=== PATIENT | male | born 1950 | race Caucasian/White ===

== ENCOUNTER 2020-07-21 19:17 | Inpatient (IN) | payer MEDICARE, OTHER, SELFPAY ==
[2020-07-21] VITALS (17 sets, daily range): BP systolic 136–174; BP diastolic 88–100; PULSE 82–107; RESP 7–16; TEMP 36.3–36.4; O2SAT 96–100; BMI 19.4
--- NOTE | 2020-07-21 19:25 | DI.CT.S_ITS ---
PROCEDURE: CT CERVICAL SPINE WO CON INDICATIONS: syncope with neck pain TECHNIQUE: Noncontrast 3 mm thick sections acquired from the skull base to the T4 level. Sagittal and coronal reformats were then constructed. For radiation dose reduction, the following was used: automated exposure control, adjustment of mA and/or kV according to patient size. COMPARISON: None. FINDINGS: Image quality: Excellent. Bones: No fractures or dislocations. Visualized superior ribs are intact. Soft tissues: Prevertebral soft tissues are normal in thickness. No paravertebral hematomas. No apical pneumothoraces. REFERENCE TEXT DELETE FROM FINAL REPORT Craniocervical Injury Classification: Occipital condyle fractures: * Type I: axial loading with minimal displacement; stable. * Type II: skull base fx extending through condyle; stable. * Type III: alar ligament avulsion fx:; unstable. Garrochales fractures (Keo): * Type I: posterior arches; stable. * Type II: anterior arch; stable. * Type III: bilat posterior arch with bilateral/unilateral anterior arch (Keo burst); potentially unstable depending on transverse ligament integrity. * Type IV: lateral mass fx; stable. * Type V: transverse anterior arch avulsion fx; stable. Odontoid fractures: * Type I: alar ligament oblique avulsion fx through tip; stable. * Type II: dens-body junction; unstable. Risk factors for non-union: age >50 years, >6 mm displacement, or comminution at fracture site. * Type III: thru cancellous portion of dens body; can cause canal compromise. Hangman fractures: * Type I: hairline fx with <2 mm translation; stable. * Type II: angulation >11 degrees, > 2 mm translation; can be unstable. * Type IIa: severe angulation w/o translation (intact ALL); unstable. * Type III: bilateral facet dislocation; unstable. Atlantoaxial rotatory subluxation and fixation: * Type I: rotatory fixation with dens as pivot point, intact alar & transverse ligaments. * Type II: transverse ligament torn, center of rotation shifts to lateral mass, <5 mm anterior displacement of atlas; unstable. * Type III: transverse and alar ligaments torn, similar to type II but with >5 mm anterior displacement of atlas; unstable. * Type IV: deficient odontoid, with posterior displacement of atlas; unstable. Subaxial Injury Classification: SLIC Scoring System. Morphology: * No abnormality: 0 * Compression: 1 * Burst: 2 * Distraction: 3 (dislocation in the vertical axis, from hyperextension or hyperflexion). Hyperflexion-distraction criteria: facet overlap <50%, facet diastasis > 2mm, posterior disk spac widening with angulation >11 degrees. * Translation or rotation: 4. Rotation criteria: listhesis >3.5 mm but <50% of caudal vertebral body width. Translation criteria: listhesis >3.5 mm and usually >50% of caudal vertebral body width. Discoligamentous complex: coil placer from abnormal bony relationships on CT. * Intact: 0 * Indeterminate: 1 * Disrupted: 2 Neurologic status: * Intact: 0 * Root injury: 1 * Complete cord injury: 2 * Incomplete cord injury: 3 * Incomplete cord injury with compression: 4 Total SLIC score: 3 or less is non-surgical, 4 is indeterminate, 5 or more is surgical. IMPRESSION: No fracture. Dictated by: Davin Byrd M.D. on 07/21/2020 at 19:55 Approved by: Davin Byrd M.D. on 07/21/2020 at 19:57
--- NOTE | 2020-07-21 19:25 | ED_ITS ---
HPI - GI Bleed General Chief complaint: GI Bleed Stated complaint: GI Bleed / Syncope Time Seen by Provider: 07/21/20 19:20 Source: patient and EMS Mode of arrival: EMS Limitations: no limitations History of Present Illness HPI Narrative: 70-year-old male never smoker, daily drinker with history of hypertension hyperlipidemia presents by EMS for evaluation of multiple days of dark tarry stools and 2 episodes of syncope today upon standing. He denies any history of GI bleed, has had no episodes of hematemesis and takes no blood thinners. He is a poor historian but thinks maybe he had a problem with an ulcer and required an EGD many years ago at [facility]. He isn't sure if he hit his head or not, but does have some left sided neck pain and EMS put him in a C Collar as the result. He denies any chest pain or shortness of breath. He denies any abdominal pain. He denies any known history of liver problems or varices. He does state he has had withdrawal symptoms from alcohol before, but no seizures. MD complaint: melena Onset (ago): day(s) Relieving factors: none Exacerbating factors: none Context: alcohol abuse Associated symptoms: syncope Treatments Prior to Arrival: none Related Data Allergies Allergy/AdvReac Type Severity Reaction Status Date / Time No Known Drug Allergies Allergy Verified 07/21/20 19:25 Review of Systems Constitutional Constitutional: Denies chills, Denies fatigue, Denies fever(s), Denies frequent falls, Denies lethargy and Reports weakness Eyes Eyes: Denies change in vision, Denies eye discharge, Denies irritation and Denies loss of vision ENT Ears, Nose, Mouth, and Throat: Denies change in voice, Denies dizziness, Denies neck pain, Denies sore throat and Denies throat swelling Cardiovascular Cardiovascular: Denies chest pain, Reports syncope, Denies irregular heart rhythm, Denies lightheadedness, Denies palpitations, Denies dyspnea, Denies dyspnea on exertion and Denies orthopnea Respiratory Respiratory: Denies cough, Denies dyspnea, Denies dyspnea on exertion and Denies wheezing Gastrointestinal Gastrointestinal: Denies abdominal pain, Reports melena, Denies change in bowel habits, Denies diarrhea, Denies nausea and Denies vomiting Musculoskeletal Musculoskeletal: Denies neck pain and Denies numbness Integumentary/Breasts Skin/Breast: Denies pruritus, Denies erythema, Denies rash and Denies wounds Neurologic Neurologic: Denies behavioral changes, Denies confusion, Denies dizziness, Reports syncope, Denies frequent falls, Denies loss of vision, Denies numbness and Reports weakness Psychiatric Psychiatric: Denies anxiety, Denies behavioral changes, Denies confusion, Denies depression, Denies homicidal ideation and Denies suicidal ideation Endocrine Endocrine: Denies fatigue, Denies flushing and Denies palpitations Hematologic/Lymphatic Hematologic/Lymphatic: Denies easy bruising Allergic/Immunologic Allergic/Immunologic: Denies urticaria, Denies throat swelling and Denies wheezing Patient History Medical History Alcohol dependence (Acute) Diabetes type 2, 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 Smoking Status: Never smoker alcohol intake frequency: 3 or more drinks per day Alcohol type: beer Exam Narrative Exam Narrative: GENERAL: [70] year old patient appears stated age. Well- nourished, well-developed patient, in mild distress. HEAD: Atraumatic. Normocephalic. EYES: Pupils equal round and reactive. Extraocular motions intact. No scleral icterus. No injection or drainage. ENT: Nose without bleeding, purulent drainage. Throat without erythema, tonsillar hypertrophy or exudate. Airway patent. NECK: Trachea midline. Non tender CARDIOVASCULAR: Regular rate and rhythm without murmurs, gallops, or rubs. RESPIRATORY: Clear to auscultation. Breath sounds equal bilaterally. No wheezes, rales, or rhonchi. GASTROINTESTINAL: Abdomen soft, non-tender, nondistended. RECTAL: Dark stool, heme + EXTREMITIES: No edema or joint tenderness. BACK: Nontender without deformity or crepitance. No flank tenderness. NEURO: AOx3. SKIN: No rash or erythema of visible areas Initial Vital Signs Initial Vital Signs: Vital Signs Temperature 97.6 F 07/21/20 19:19 Pulse Rate 107 H 07/21/20 19:19 Respiratory Rate 16 07/21/20 19:19 Blood Pressure 159/98 H 07/21/20 19:19 Pulse Oximetry 100 07/21/20 19:19 Course Orders Ordered: ED Orders 07/21/20 19:25 CT cervical spine wo con Stat CT head/brain wo con Stat 07/21/20 19:30 Ammonia (NH3) Stat Complete Blood Count AUTO DIFF Stat Comprehensive Metabolic Panel Stat Ethanol (ETOH) Stat Lactate (Lactic Acid) Stat Partial Thromboplastin Time Stat Prothrombin Time INR Stat Type and Screen Stat 07/21/20 21:01 Hemoglobin and Hematocrit Stat Acetaminophen (Tylenol) 650 mg PO Q6HR PRN PRN Reason: Fever/Mild Pain (1-3) Dextrose (D50w) 25 gm IV PRN PRN PRN Reason: Hypoglycemia Folic Acid (Folic Acid) 1 mg PO DAILY [facility] Hydromorphone HCl (Dilaudid) 0.5 mg IV Q6HR PRN PRN Reason: Pain, Moderate (4-6) Pantoprazole Sodium 80 mg/ (Sodium Chloride) 100 mls @ 10 mls/hr IV CONT [facility] Last Infusion: 07/21/20 23:00 Dose: 8 mg/hr, 10 mls/hr Documented by: Infusion: 07/21/20 22:30 Dose: 0 mg/hr, 0 mls/hr Documented by: Admin: 07/21/20 20:02 Dose: 8 mg/hr, 10 mls/hr Documented by: RIMA Magnesium Sulfate 2 gm/ Folic Acid 1 mg/ Thiamine HCl 100 mg / Multivitamins 10 ml/ Sodium Chloride 1,015.2 mls @ 125 mls/hr IV NOW ONE Stop: 07/22/20 06:49 Last Admin: 07/22/20 00:53 Dose: 125 mls/hr Documented by: NIKO Insulin Aspart (Novolog Flexpen) 0 unit SUBCUT ACHS [facility]; Protocol Lorazepam (Ativan) 0.5 mg IV Q4HR PRN PRN Reason: Alcohol Withdrawal Multivitamins (Tab-A-Venancio) 1 tab PO DAILY [facility] Naloxone HCl (Narcan) 0.2 mg IV Q2MIN PRN PRN Reason: Opiate Reversal Ondansetron HCl (Zofran) 4 mg IV Q6HR PRN PRN Reason: Nausea And Vomiting Pantoprazole Sodium (Protonix) 40 mg IV BID [facility] Thiamine HCl (Vitamin B-1) 100 mg PO DAILY [facility] Stop: 07/25/20 09:01 Discontinued Medications Metoprolol Tartrate (Lopressor) 25 mg PO NOW ONE Stop: 07/21/20 22:50 Last Admin: 07/22/20 00:15 Dose: 25 mg Documented by: NIKO Octreotide Acetate (Sandostatin) 50 mcg IV NOW ONE Stop: 07/21/20 19:22 Last Admin: 07/21/20 19:30 Dose: 50 mcg Documented by: RIMA Pantoprazole Sodium (Protonix) 80 mg IV NOW ONE Stop: 07/21/20 19:22 Last Admin: 07/21/20 19:30 Dose: 80 mg Documented by: RIMA Thiamine HCl (Vitamin B-1) 100 mg IV NOW ONE Stop: 07/21/20 19:59 Last Admin: 07/21/20 20:03 Dose: 100 mg Documented by: RIMA Consultations Consultation #1: call to Dr. Velasquez to discuss his involvement with patient and suggestion of upper GI bleed, given his history of alcohol abuse. Vital Signs Vital signs: Vital Signs - 8 hr 07/21/20 19:19 07/21/20 19:25 07/21/20 19:30 Temperature 97.6 F Pulse Rate 107 H 98 H 103 H Respiratory Rate 16 Blood Pressure 159/98 H Pulse Oximetry 100 100 99 07/21/20 19:47 07/21/20 19:48 07/21/20 20:00 Temperature Pulse Rate 100 H 100 H 88 Respiratory Rate 14 8 L Blood Pressure 164/100 H Pulse Oximetry 99 99 97 07/21/20 20:01 07/21/20 20:15 07/21/20 20:30 Temperature Pulse Rate 90 91 H 85 Respiratory Rate 10 L 8 L 8 L Blood Pressure 164/98 H 144/94 H Pulse Oximetry 96 97 97 07/21/20 20:45 07/21/20 21:00 07/21/20 21:15 Temperature Pulse Rate 84 86 85 Respiratory Rate 9 L 10 L 8 L Blood Pressure 139/93 H Pulse Oximetry 98 98 98 07/21/20 21:30 07/21/20 21:45 07/21/20 22:00 Temperature Pulse Rate 85 84 96 H Respiratory Rate 7 L 7 L 15 Blood Pressure 136/88 Pulse Oximetry 98 99 99 07/21/20 22:13 Temperature Pulse Rate 84 Respiratory Rate 15 Blood Pressure 174/88 H Pulse Oximetry 99 MDM - GI Bleed Lab Data Result diagrams: 07/21/20 21:01 07/21/20 19:30 Labs: Lab Results 07/21/20 07/21/20 07/21/20 Range/Units 19:30 19:30 19:30 WBC 6.5 (4.5-11.0) X10^3/uL RBC 3.56 L (4.5-5.9) X10^6/uL Hgb 12.2 L (13.5-17.5) g/dL Hct 35.9 L (41-53) % MCV 100.7 H (80-100) fL MCH 34.3 H (26-34) PG MCHC 34.1 (30-36) % RDW 17.6 H (11.6-14.8) % Plt Count 213 (150-400) X10^3/uL Neut % (Auto) 73.6 (50-75) % Lymph % (Auto) 16.4 L (25-40) % [place] % (Auto) 7.7 (3-14) % Eos % (Auto) 1.3 L (2-4) % Baso % (Auto) 1.0 (0-2) % Neut # (Auto) 4800 (8562-7748) /uL Lymph # (Auto) 1100 (9004-9765) /uL [place] # (Auto) 500 (0-900) /uL Eos # (Auto) 100 (0-450) /uL Baso # (Auto) 100 (0-100) /uL PT 16.2 H (10.1-12.7) SECONDS INR 1.4 H (0.9-1.3) APTT 27 (26.4-36.2) SECONDS Sodium 134 L (137-145) mmol/L Potassium 3.6 (3.4-5.1) mmol/L Chloride 98 (98-107) mmol/L Carbon Dioxide 19 L (22-32) mmol/L BUN 14 (9-20) mg/dL Creatinine 0.53 L (0.66-1.25) mg/dL Estimated GFR > 60.0 (>60) mL/min BUN/Creatinine Ratio 26.4 H (6-22) Glucose 147 H (80-110) mg/dL Hemoglobin A1c (4.0-6.0) % Lactate (0.7-2.1) mmol/L Calcium 9.4 (8.4-10.2) mg/dL Total Bilirubin 2.0 H (0.2-1.3) mg/dL AST 121 H (17-59) IU/L ALT 76 H (<50) IU/L Alkaline Phosphatase 59 (38-126) U/L Ammonia (9-30) umol/L Total Protein 6.9 (6.3-8.2) g/dL Albumin 3.9 (3.5-5.0) g/dL Globulin 3.0 (1.7-4.1) g/dL Albumin/Globulin Ratio 1.3 (1.0-2.8) Ethyl Alcohol < 10 ( - 10) mg/dL COVID-19 PCR (Negative) Blood Type Antibody Screen 07/21/20 07/21/20 07/21/20 Range/Units 19:30 19:30 19:30 WBC (4.5-11.0) X10^3/uL RBC (4.5-5.9) X10^6/uL Hgb (13.5-17.5) g/dL Hct (41-53) % MCV (80-100) fL MCH (26-34) PG MCHC (30-36) % RDW (11.6-14.8) % Plt Count (150-400) X10^3/uL Neut % (Auto) (50-75) % Lymph % (Auto) (25-40) % [place] % (Auto) (3-14) % Eos % (Auto) (2-4) % Baso % (Auto) (0-2) % Neut # (Auto) (3071-4286) /uL Lymph # (Auto) (9958-5226) /uL [place] # (Auto) (0-900) /uL Eos # (Auto) (0-450) /uL Baso # (Auto) (0-100) /uL PT (10.1-12.7) SECONDS INR (0.9-1.3) APTT (26.4-36.2) SECONDS Sodium (137-145) mmol/L Potassium (3.4-5.1) mmol/L Chloride (98-107) mmol/L Carbon Dioxide (22-32) mmol/L BUN (9-20) mg/dL Creatinine (0.66-1.25) mg/dL Estimated GFR (>60) mL/min BUN/Creatinine Ratio (6-22) Glucose (80-110) mg/dL Hemoglobin A1c (4.0-6.0) % Lactate 2.1 (0.7-2.1) mmol/L Calcium (8.4-10.2) mg/dL Total Bilirubin (0.2-1.3) mg/dL AST (17-59) IU/L ALT (<50) IU/L Alkaline Phosphatase (38-126) U/L Ammonia < 9 L (9-30) umol/L Total Protein (6.3-8.2) g/dL Albumin (3.5-5.0) g/dL Globulin (1.7-4.1) g/dL Albumin/Globulin Ratio (1.0-2.8) Ethyl Alcohol ( - 10) mg/dL COVID-19 PCR (Negative) Blood Type A Positive Antibody Screen Negative 07/21/20 07/21/20 07/21/20 Range/Units 21:01 21:01 22:00 WBC (4.5-11.0) X10^3/uL RBC (4.5-5.9) X10^6/uL Hgb 11.6 L (13.5-17.5) g/dL Hct 33.6 L (41-53) % MCV (80-100) fL MCH (26-34) PG MCHC (30-36) % RDW (11.6-14.8) % Plt Count (150-400) X10^3/uL Neut % (Auto) (50-75) % Lymph % (Auto) (25-40) % [place] % (Auto) (3-14) % Eos % (Auto) (2-4) % Baso % (Auto) (0-2) % Neut # (Auto) (1279-5484) /uL Lymph # (Auto) (1033-7621) /uL [place] # (Auto) (0-900) /uL Eos # (Auto) (0-450) /uL Baso # (Auto) (0-100) /uL PT (10.1-12.7) SECONDS INR (0.9-1.3) APTT (26.4-36.2) SECONDS Sodium (137-145) mmol/L Potassium (3.4-5.1) mmol/L Chloride (98-107) mmol/L Carbon Dioxide (22-32) mmol/L BUN (9-20) mg/dL Creatinine (0.66-1.25) mg/dL Estimated GFR (>60) mL/min BUN/Creatinine Ratio (6-22) Glucose (80-110) mg/dL Hemoglobin A1c 5.7 (4.0-6.0) % Lactate (0.7-2.1) mmol/L Calcium (8.4-10.2) mg/dL Total Bilirubin (0.2-1.3) mg/dL AST (17-59) IU/L ALT (<50) IU/L Alkaline Phosphatase (38-126) U/L Ammonia (9-30) umol/L Total Protein (6.3-8.2) g/dL Albumin (3.5-5.0) g/dL Globulin (1.7-4.1) g/dL Albumin/Globulin Ratio (1.0-2.8) Ethyl Alcohol ( - 10) mg/dL COVID-19 PCR Negativen (Negative) Blood Type Antibody Screen Point of Care Testing Stool Occult Blood Positive Discharge Plan Departure Patient Disposition: Admitted As Inpatient Clinical Impression: Acute upper gastrointestinal bleeding Syncope Qualifiers: Encounter type: initial encounter Discharge Date/Time: 07/21/20 22:20 Admit Date/Time: 07/21/20 22:28 Admit Provider: Sridevi Dsouza
--- NOTE | 2020-07-21 19:25 | DI.CT.S_ITS ---
PROCEDURE: CT HEAD/BRAIN WO CON INDICATIONS: syncope with head/neck injury TECHNIQUE: Noncontrast 4.5 mm thick angled axial sections acquired from the foramen magnum to the vertex, with coronal and sagittal reformats. For radiation dose reduction, the following was used: automated exposure control, adjustment of mA and/or kV according to patient size. COMPARISON: None. FINDINGS: Image quality: Excellent. CSF spaces: Basal cisterns are patent. No extra-axial fluid collections. The ventricles are symmetric in size and shape. Brain: No intracranial bleeds or masses. There is cerebral volume loss for age, with resultant ventricular and sulcal prominence. There are periventricular and deep white matter chronic small vessel ischemic changes. There is intracranial internal carotid artery atherosclerosis. Skull and face: Calvarium and visualized facial bones appear intact, without suspicious lesions. Sinuses: Visualized sinuses and mastoids are clear. IMPRESSION: No acute intracranial abnormality. Dictated by: Davin Byrd M.D. on 07/21/2020 at 19:54 Approved by: Davin Byrd M.D. on 07/21/2020 at 19:55
[2020-07-21] MEDS: PANTOPRAZOLE 40 MG VIAL 80 MG IV (19:30)
[2020-07-21] MEDS: OCTREOTIDE 100 MCG/ML VIAL 50 MCG IV (19:30)
[2020-07-21 19:39] LABS: Add Manual Diff / Slide Review NO; Basophils Absolute Auto 100 /uL (0-100); Eosinophils Absolute Auto 100 /uL (0-450); Eosinophils Percent Auto 1.3 % (2-4); Hematocrit 35.9 % (41-53); Hemoglobin 12.2 g/dL (13.5-17.5); Lymphocytes Absolute Auto 1100 /uL (1100-4500); Lymphocytes Percent Auto 16.4 % (25-40); Mean Corpuscular HGB Conc 34.1 % (30-36); Mean Corpuscular Hemoglobin 34.3 PG (26-34); Mean Corpuscular Volume 100.7 fL (80-100); Monocytes Absolute Auto 500 /uL (0-900); Monocytes Percent Auto 7.7 % (3-14); Neutrophils Absolute Auto 4800 /uL (1500-7000); Neutrophils Percent Auto 73.6 % (50-75); Platelet Count 213 X10^3/uL (150-400); Red Blood Cell Count 3.56 X10^6/uL (4.5-5.9); Red Cell Distribution Width 17.6 % (11.6-14.8); White Blood Cell Count 6.5 X10^3/uL (4.5-11.0)
[2020-07-21 19:45] LABS: INR 1.4 (0.9-1.3); Prothrombin Time 16.2 SECONDS (10.1-12.7)
[2020-07-21 19:48] LABS: PTT Partial Thromboplastin Tim 27 SECONDS (26.4-36.2)
[2020-07-21 19:49] LABS: Lactate (Lactic Acid) 2.1 mmol/L (0.7-2.1)
[2020-07-21 19:50] LABS: Alanine Aminotransferase 76 IU/L (<50); Albumin 3.9 g/dL (3.5-5.0); Albumin Globulin Ratio 1.3 (1.0-2.8); Alkaline Phosphatase 59 U/L (38-126); Aspartate Aminotransferase 121 IU/L (17-59); BUN Creatinine Ratio 26.4 (6-22); Blood Urea Nitrogen 14 mg/dL (9-20); Calcium 9.4 mg/dL (8.4-10.2); Carbon Dioxide 19 mmol/L (22-32); Chloride 98 mmol/L (98-107); Estimated Glomerular Filt Rate > 60.0 mL/min (>60); Ethanol (ETOH) < 10 mg/dL; Glucose 147 mg/dL (80-110); HEMOLYSIS < 15 (0-50); Potassium 3.6 mmol/L (3.4-5.1); Sodium 134 mmol/L (137-145); Total Protein 6.9 g/dL (6.3-8.2)
[2020-07-21] MEDS: PANTOPRAZOLE 80 MG in SODIUM CHLORIDE 0.9% 100 ML 10 ML IV (20:02)
[2020-07-21] MEDS: THIAMINE 200 MG/2 ML VIAL 100 MG IV (20:03)
[2020-07-21 20:09] LABS: Ammonia (NH3) < 9 umol/L (9-30)
[2020-07-21 21:14] LABS: Hematocrit 33.6 % (41-53); Hemoglobin 11.6 g/dL (13.5-17.5)
--- NOTE | 2020-07-21 22:48 | PC.NURSE ---
2230 pt admitted to 228 per stretcher from ED Awake and oriented, able to make needs known. Instructed to call for help if needing to get out of bed, verbalizes understanding. protonix drip in progress to R hand IV. Denies pain at this time.
--- NOTE | 2020-07-21 22:52 | P.HP_ITS ---
History of Present Illness History of Present Illness Date Patient Seen: 07/21/20 Time Patient Seen: 22:30 Chief complaint: GI Bleed / Syncope Narrative: Patric Dejesus is a 70 y.o.male with self reported diabetes type 2 and hypertension who states he fell and has been feeling weak. Does not remember details of the fall, only that he has fallen twice earlier today and he has been having dark tarry stools. Stated he underwent EGD at [facility] in 2008. He is retired [employer] after 22 years of service, and goes to the [facility] in [facility]. States he has had a number of colonoscopies at [facility] with no abnormal results that he recalls. He stated EMS told him he was sweating profusely, on arrival to the ED he complained of neck pain and was placed in a C-collar. He denies shortness of breath, palpitations or chest pain, has had some nausea but no vomiting, denies dysurea, or constipation, nor has easy bleeding or bruising and denies taking blood thinners. He does endorse drinking 3-4 glasses of wine daily and has leg tremors when he has had to withdraw. He has chronic bilateral lower extremity, specifically feet numbing. Patient reportedly drinks 3-4 glasses of wine daily, but states his last drink was a day and a half ago. States when he has had to stop drinking, he has lower extremity tremors. In the emergency department they did a cervical and head x-ray which did not reveal any abnormalities. He was given Protonix IV 80 mg and thiamine. Patient is temperature was 97.6?, blood pressure 174/88, heart rate 84, respiratory rate 15, 99% oxygen saturation, he weighs 61.5 kg and has a BMI of 19.5. WBC 6.5, RBC 3.56, hemoglobin 11.6, hematocrit 33.6, platelet count 213, INR is 1.4, PT 16.2 seconds, sodium 134, potassium 3.6, chloride 98, bicarb 19, BUN 14, creatinine 0.53, GFR greater than 60, glucose 147, A1c is pending, total bili stiles is 2.0, AST 121, ALT 76, alk-phos 59, ammonia normal at less than 9, ethyl alcohol normal at less than 10, COVID-19 negative. Of note, patient states he does not recall medical conditions his parents or other primary family members have had. Patient History Medical History Alcohol dependence (Acute) Diabetes type 2, no ocular involvement (Chronic) Hypertension (Acute) Surgical History History of repair of hiatal hernia (Acute) Family & Social History Family History Mother Unknown family medical history Father Unknown family medical history Safety & Behavioral: Feels Safe in Current Yes Environment Been Physically Hurt or No Threatened By a Person Tobacco & Substance use: Smoking Status Never smoker alcohol intake frequency 3 or more drinks per day Meds Home Medications and Allergies Allergies Allergy/AdvReac Type Severity Reaction Status Date / Time No Known Drug Allergies Allergy Verified 07/21/20 19:25 Review of Systems Review of Systems ROS: Yes All systems reviewed with the patient and are negative except as otherwise documented Exam Vital Signs (past 8 hours): - 07/21/20 19:19 07/21/20 19:25 07/21/20 19:30 Temperature 97.6 F Pulse Rate 107 H 98 H 103 H Respiratory Rate 16 Blood Pressure 159/98 H Pulse Oximetry 100 100 99 07/21/20 19:47 07/21/20 19:48 07/21/20 20:00 Temperature Pulse Rate 100 H 100 H 88 Respiratory Rate 14 8 L Blood Pressure 164/100 H Pulse Oximetry 99 99 97 07/21/20 20:01 07/21/20 20:15 07/21/20 20:30 Temperature Pulse Rate 90 91 H 85 Respiratory Rate 10 L 8 L 8 L Blood Pressure 164/98 H 144/94 H Pulse Oximetry 96 97 97 07/21/20 20:45 07/21/20 21:00 07/21/20 21:15 Temperature Pulse Rate 84 86 85 Respiratory Rate 9 L 10 L 8 L Blood Pressure 139/93 H Pulse Oximetry 98 98 98 07/21/20 21:30 07/21/20 21:45 07/21/20 22:00 Temperature Pulse Rate 85 84 96 H Respiratory Rate 7 L 7 L 15 Blood Pressure 136/88 Pulse Oximetry 98 99 99 07/21/20 22:13 Temperature Pulse Rate 84 Respiratory Rate 15 Blood Pressure 174/88 H Pulse Oximetry 99 Oxygen Delivery Method Room Air Narrative Exam Narrative: PE: Gen: Alert, oriented, chronically ill appearing 70 y.o. male, appears dry HEENT: normocephalic, atraumatic, conjunctiva clear, sclera non-icteric, oral mucosa pink and moist Neck: supple, full ROM, no JVD, trachea is midline Resp: Lungs CTA, non-labored breathing CV: RRR, no murmur or rubs Abd: soft, non-tender, normoactive BTs Skin: no lesions or rashes, dry and intact Neuro: Alert and oriented X 4 w/no focal deficits. Speech clear and coherent. Extremities: moves all 4 extremities, is ambulatory, negative Ranjit?s sign Psyche: normal mood and affect. Objective Labs Result Diagrams: 07/21/20 21:01 07/21/20 19:30 Labs: Laboratory Results - last 24 hr 07/21/20 07/21/20 07/21/20 19:30 19:30 19:30 WBC 6.5 RBC 3.56 L Hgb 12.2 L Hct 35.9 L MCV 100.7 H MCH 34.3 H MCHC 34.1 RDW 17.6 H Plt Count 213 Neut % (Auto) 73.6 Lymph % (Auto) 16.4 L [place] % (Auto) 7.7 Eos % (Auto) 1.3 L Baso % (Auto) 1.0 Neut # (Auto) 4800 Lymph # (Auto) 1100 [place] # (Auto) 500 Eos # (Auto) 100 Baso # (Auto) 100 PT 16.2 H INR 1.4 H APTT 27 Sodium 134 L Potassium 3.6 Chloride 98 Carbon Dioxide 19 L BUN 14 Creatinine 0.53 L Estimated GFR > 60.0 BUN/Creatinine Ratio 26.4 H Glucose 147 H Lactate Calcium 9.4 Total Bilirubin 2.0 H AST 121 H ALT 76 H Alkaline Phosphatase 59 Ammonia Total Protein 6.9 Albumin 3.9 Globulin 3.0 Albumin/Globulin Ratio 1.3 Ethyl Alcohol < 10 Blood Type Antibody Screen 07/21/20 07/21/20 07/21/20 19:30 19:30 19:30 WBC RBC Hgb Hct MCV MCH MCHC RDW Plt Count Neut % (Auto) Lymph % (Auto) [place] % (Auto) Eos % (Auto) Baso % (Auto) Neut # (Auto) Lymph # (Auto) [place] # (Auto) Eos # (Auto) Baso # (Auto) PT INR APTT Sodium Potassium Chloride Carbon Dioxide BUN Creatinine Estimated GFR BUN/Creatinine Ratio Glucose Lactate 2.1 Calcium Total Bilirubin AST ALT Alkaline Phosphatase Ammonia < 9 L Total Protein Albumin Globulin Albumin/Globulin Ratio Ethyl Alcohol Blood Type A Positive Antibody Screen Negative 07/21/20 21:01 WBC RBC Hgb 11.6 L Hct 33.6 L MCV MCH MCHC RDW Plt Count Neut % (Auto) Lymph % (Auto) [place] % (Auto) Eos % (Auto) Baso % (Auto) Neut # (Auto) Lymph # (Auto) [place] # (Auto) Eos # (Auto) Baso # (Auto) PT INR APTT Sodium Potassium Chloride Carbon Dioxide BUN Creatinine Estimated GFR BUN/Creatinine Ratio Glucose Lactate Calcium Total Bilirubin AST ALT Alkaline Phosphatase Ammonia Total Protein Albumin Globulin Albumin/Globulin Ratio Ethyl Alcohol Blood Type Antibody Screen Assessment & Plan Assessment & Plan narrative: Patric Dejesus will be admitted for further workup and assessment of a suspected upper GI bleed. Suspected upper GI bleed, acute, present on admission -NPO -NS at 100 ml/hour -IV protonix 40 mg bid -Dr. Velasquez to see in the am -cbc in the am Elevated liver enzymes, unknown if present on admission -Repeat in the am, if continued elevated, order a Hepatitis panel Alcohol dependence with potential for alcohol withdrawal -[facility] protocol -IV ativan 0.5 mg q 4 hours as needed for withdrawal Diabetes type 2 with an A1c of 5.7 -Insulin low dose correctional scale q 6 hours -POC glucose q 6 hours Essential hypertension, chronic, present on admission -He has been administered metoprolol tartrate 25 mg bid, first dose given tonight -Records request from the [facility] and [facility] tomorrow Plan: Consults: Dr. Velasquez, General Surgery, consult and involvement is appreciated. Patient is admitted under inpatient status with expected length of stay greater than 2 midnights due to severity of presenting symptoms, risk of adverse event, and complexity of treatment plan. FEN: IV NS at 100 ml/hour, NPO, CMP and magnesium in the am . VTE prophylaxis: Bilateral SCDs Dispo: Probable discharge to home Code Status: Full code as discussed with patient COVID-19 COVID-19 status: Negative Result date/Date tested (Pos, Neg/Pending): 07/21/20
[2020-07-21 23:37] LABS: Hemoglobin A1C% w Est Avg Glu 5.7 % (4.0-6.0)
[2020-07-22] VITALS (14 sets, daily range): BP systolic 93–150; BP diastolic 64–90; PULSE 64–150; RESP 7–20; TEMP 36.1–37.1; O2SAT 92–99; BMI 19.4
--- NOTE | 2020-07-22 | PATH_ITS ---
[facility] Accession Number: [id number] . 01 Material submitted: . gastrointestinal site - GASTRIC BIOPSY . 01 Clinical history: . GI BLEED/SYNCOPE . 02 Diagnosis: Stomach, Biopsy: Mild chronic gastritis. Negative for Helicobacter by immunohistochemistry. Negative for intestinal metaplasia. Negative for dysplasia and malignancy. [facility] 07/25/2020 1503 Local . 02 Electronically signed: . Miri Reinoso MD, Pathologist NPI- [id number] . 01 Gross description: . GASTRIC BIOPSY: Received in formalin are 2 fragment(s) of landin, soft tissue measuring 0.5 x 0.2 x 0.2 cm to 0.2 x 0.1 x 0.1 cm submitted entirely in 1 cassette(s) /[facility] 07/23/2020 0704 Local . 02 Microscopic: . An immunohistochemical stain was performed to evaluate for Helicobacter organisms and is negative. The control stain showed appropriate reactivity. . * This test was developed and its performance characteristics determined by [facility]. It has not been cleared or approved by the U.S. Food and Drug Administration. The FDA has determined that such clearance or approval is not necessary. This test is used for clinical purposes. It should not be regarded as investigational or for research. . 02 Pathologist provided ICD-10: K92.2 . 02 CPT . 672767, [id number] Performed at: 01 [facility] [address], [place], [place] [id number] MD Constantin Fernandes MD Phone: [phone] Performed at: 02 [facility] [address] [place], [place] [id number] MD Miri Reinoso MD Phone: [phone]
[2020-07-22] MEDS: METOPROLOL IR 25 MG TABLET PO (00:15)
[2020-07-22] MEDS: MAGNESIUM SULFATE 2 GM, FOLIC ACID 1 MG, THIAMINE 100 MG, MULTIVITAMIN 10 ML in SODIUM ... IV (00:53)
[2020-07-22 05:04] LABS: Add Manual Diff / Slide Review NO; Basophils Absolute Auto 100 /uL (0-100); Basophils Percent Auto 1.1 % (0-2); Eosinophils Absolute Auto 200 /uL (0-450); Eosinophils Percent Auto 2.7 % (2-4); Hematocrit 31.7 % (41-53); Hemoglobin 10.9 g/dL (13.5-17.5); Lymphocytes Absolute Auto 1700 /uL (1100-4500); Lymphocytes Percent Auto 26.2 % (25-40); Mean Corpuscular HGB Conc 34.4 % (30-36); Mean Corpuscular Hemoglobin 34.9 PG (26-34); Mean Corpuscular Volume 101.5 fL (80-100); Monocytes Absolute Auto 600 /uL (0-900); Monocytes Percent Auto 8.6 % (3-14); Neutrophils Absolute Auto 4000 /uL (1500-7000); Neutrophils Percent Auto 61.4 % (50-75); Platelet Count 175 X10^3/uL (150-400); Red Blood Cell Count 3.12 X10^6/uL (4.5-5.9); Red Cell Distribution Width 17.5 % (11.6-14.8); White Blood Cell Count 6.5 X10^3/uL (4.5-11.0)
[2020-07-22 05:12] LABS: Alanine Aminotransferase 69 IU/L (<50); Albumin 3.4 g/dL (3.5-5.0); Albumin Globulin Ratio 1.2 (1.0-2.8); Alkaline Phosphatase 49 U/L (38-126); Aspartate Aminotransferase 99 IU/L (17-59); BUN Creatinine Ratio 27.5 (6-22); Bilirubin Total 2.1 mg/dL (0.2-1.3); Blood Urea Nitrogen 14 mg/dL (9-20); Calcium 8.8 mg/dL (8.4-10.2); Carbon Dioxide 24 mmol/L (22-32); Chloride 100 mmol/L (98-107); Estimated Glomerular Filt Rate > 60.0 mL/min (>60); Globulin 2.9 g/dL (1.7-4.1); Glucose 114 mg/dL (80-110); HEMOLYSIS < 15 (0-50); Potassium 3.4 mmol/L (3.4-5.1); Sodium 136 mmol/L (137-145); Total Protein 6.3 g/dL (6.3-8.2)
--- NOTE | 2020-07-22 06:30 | PC.NURSE ---
NOC Note: Pt denies pain, BT x4, no stools this shift. Pt has not been out of bed this shift, he requested a urinal but has not used it and became irritated with staff when he was encouraged to try. IV fluids running as ordered. CIWA score of 0. Pt has been NPO as ordered. Pt moving independently in the bed. Pt requesting that [facility].
[2020-07-22] MEDS: PANTOPRAZOLE 40 MG VIAL IV ×2 (08:10→21:27)
--- NOTE | 2020-07-22 08:40 | CM.DANOTE ---
DCP: Case received, EMR reviewed and met with patient. Introduced self and role. Was able to obtain some information from patient regarding his baseline activity level and living situation. DCP assessment completed with information currently available. Patient is a 70 year old male who admitted yesterday evening to the care of the hospitalist/surgical team. PCP: Dr. Avalos at [facility] in [facility]. Payer: confirmed: Located [facility]. Patient came to the hospital via ambulance secondary to weakness. Patient holds diagnosis of GI bleed. He is to be having an EGD today. It is also noted that patient is a daily drinker, approximately 3 glasses of wine daily. Met with patient in his room. He was sitting up in bed, alert and oriented. Confirmed that he resides alone in [place]. He is retired [employer] after 22 years, and is retired. He uses no DME. He has had falls before. Patient indicated that he holds on to the flores to ambulate. He does not drive, and relies on the bus service or taxi. He does have a fellow retiree that takes him to [facility] for his appointments. He has no family. P: DCP to follow closely. Will discuss at team rounds. Patient is to have his procedure today. He may benefit with P.T. consult. Magaly Pierson RN/[employer]
--- NOTE | 2020-07-22 10:51 | PM.CN ---
History of Present Illness Consult details Date Patient Seen: 07/22/20 Time Patient Seen: 10:51 Chief complaint: GI Bleed / Syncope Narrative: This is a 70-year-old male who is seen in consultation for GI bleed. He has had 3 days of dark appearing stools and has felt lightheaded and weak. At the time of admission he is hemodynamically stable hematocrit 36. Has no hematemesis or bright red blood per rectum. He has a history of peptic ulcer disease he cannot recall when. He rarely takes NSAIDs or aspirin, he is not anticoagulated. [facility]. Meds Home Medications and Allergies Allergies Allergy/AdvReac Type Severity Reaction Status Date / Time No Known Drug Allergies Allergy Verified 07/21/20 19:25 Review of Systems Review of Systems Narrative: A 10 point review of systems is negative except as noted in the HPI Exam Vital Signs (past 8 hours): - 07/22/20 04:57 07/22/20 08:00 07/22/20 10:17 Temperature 98.1 F 98.7 F 97.0 F L Pulse Rate 76 150 H 76 Respiratory Rate 18 10 L 16 Blood Pressure 127/82 150/76 H 139/90 Pulse Oximetry 97 97 99 Oxygen Delivery Method Room Air Oxygen Flow Rate 0 Narrative Exam Narrative: General-no acute distress, thin elderly man HEENT-moist mucous membranes, no scleral icterus Neck-supple, no lymphadenopathy Chest- non labored respirations, clear to auscultation bilaterally Cardiac-regular rate no peripheral edema Abdomen-soft, nontender, non distended Extremities-warm, well perfused Neurological-alert and oriented, no focal deficits Objective Labs Result Diagrams: 07/22/20 04:47 07/22/20 04:47 Labs: Laboratory Results - last 24 hr 07/21/20 07/21/20 07/21/20 19:30 19:30 19:30 WBC 6.5 RBC 3.56 L Hgb 12.2 L Hct 35.9 L MCV 100.7 H MCH 34.3 H MCHC 34.1 RDW 17.6 H Plt Count 213 Neut % (Auto) 73.6 Lymph % (Auto) 16.4 L [place] % (Auto) 7.7 Eos % (Auto) 1.3 L Baso % (Auto) 1.0 Neut # (Auto) 4800 Lymph # (Auto) 1100 [place] # (Auto) 500 Eos # (Auto) 100 Baso # (Auto) 100 PT 16.2 H INR 1.4 H APTT 27 Sodium 134 L Potassium 3.6 Chloride 98 Carbon Dioxide 19 L BUN 14 Creatinine 0.53 L Estimated GFR > 60.0 BUN/Creatinine Ratio 26.4 H Glucose 147 H Hemoglobin A1c Lactate Calcium 9.4 Magnesium Total Bilirubin 2.0 H AST 121 H ALT 76 H Alkaline Phosphatase 59 Ammonia Total Protein 6.9 Albumin 3.9 Globulin 3.0 Albumin/Globulin Ratio 1.3 Nasal Screen MRSA (PCR) Ethyl Alcohol < 10 COVID-19 PCR Blood Type Antibody Screen 07/21/20 07/21/20 07/21/20 19:30 19:30 19:30 WBC RBC Hgb Hct MCV MCH MCHC RDW Plt Count Neut % (Auto) Lymph % (Auto) [place] % (Auto) Eos % (Auto) Baso % (Auto) Neut # (Auto) Lymph # (Auto) [place] # (Auto) Eos # (Auto) Baso # (Auto) PT INR APTT Sodium Potassium Chloride Carbon Dioxide BUN Creatinine Estimated GFR BUN/Creatinine Ratio Glucose Hemoglobin A1c Lactate 2.1 Calcium Magnesium Total Bilirubin AST ALT Alkaline Phosphatase Ammonia < 9 L Total Protein Albumin Globulin Albumin/Globulin Ratio Nasal Screen MRSA (PCR) Ethyl Alcohol COVID-19 PCR Blood Type A Positive Antibody Screen Negative 07/21/20 07/21/20 07/21/20 21:01 21:01 22:00 WBC RBC Hgb 11.6 L Hct 33.6 L MCV MCH MCHC RDW Plt Count Neut % (Auto) Lymph % (Auto) [place] % (Auto) Eos % (Auto) Baso % (Auto) Neut # (Auto) Lymph # (Auto) [place] # (Auto) Eos # (Auto) Baso # (Auto) PT INR APTT Sodium Potassium Chloride Carbon Dioxide BUN Creatinine Estimated GFR BUN/Creatinine Ratio Glucose Hemoglobin A1c 5.7 Lactate Calcium Magnesium Total Bilirubin AST ALT Alkaline Phosphatase Ammonia Total Protein Albumin Globulin Albumin/Globulin Ratio Nasal Screen MRSA (PCR) Ethyl Alcohol COVID-19 PCR Negativen Blood Type Antibody Screen 07/21/20 07/22/20 07/22/20 22:50 04:47 04:47 WBC 6.5 RBC 3.12 L Hgb 10.9 L Hct 31.7 L MCV 101.5 H MCH 34.9 H MCHC 34.4 RDW 17.5 H Plt Count 175 Neut % (Auto) 61.4 Lymph % (Auto) 26.2 [place] % (Auto) 8.6 Eos % (Auto) 2.7 Baso % (Auto) 1.1 Neut # (Auto) 4000 Lymph # (Auto) 1700 [place] # (Auto) 600 Eos # (Auto) 200 Baso # (Auto) 100 PT INR APTT Sodium 136 L Potassium 3.4 Chloride 100 Carbon Dioxide 24 BUN 14 Creatinine 0.51 L Estimated GFR > 60.0 BUN/Creatinine Ratio 27.5 H Glucose 114 H Hemoglobin A1c Lactate Calcium 8.8 Magnesium 2.0 Total Bilirubin 2.1 H AST 99 H ALT 69 H Alkaline Phosphatase 49 Ammonia Total Protein 6.3 Albumin 3.4 L Globulin 2.9 Albumin/Globulin Ratio 1.2 Nasal Screen MRSA (PCR) Negative for mrsa Ethyl Alcohol COVID-19 PCR Blood Type Antibody Screen Assessment & Plan Assessment & Plan narrative: 70 year old man hemodynamically stable with a GI bleed presumably upper. Recommended that we proceed with a esophagoduodenoscopy for diagnostic/therapeutic purpose. I described the technical nature of the procedure to him and the associated procedural risks including missed diagnosis, intestinal perforation, bleeding infection need for further procedure. His questions have been answered he is in agreement with this plan.
[2020-07-22] MEDS: LIDOCAINE 4% SOLN 50 ML 20 ML TOP (10:58)
[2020-07-22] MEDS: fentaNYL 250 MCG/5 ML INJ IV (11:00)
[2020-07-22] MEDS: MIDAZOLAM 5 MG/5 ML VIAL IV (11:00)
--- NOTE | 2020-07-22 11:09 | PM.OP.ENDO ---
Operative Date/Time/Diagnoses Date of procedure: 07/22/20 Time of procedure: 11:09 Pre-op diagnosis: GI bleed Post-op diagnosis: other (Gastritis) Procedure & Clinicians Study performed: Esophagoduodenoscopy Same procedure as scheduled: Yes Indications: 70 year old man admitted to the hospital with melanotic stool hemodynamically stable here for EGD Surgeon: Nikolas Velasquez Procedure Notes SCOAP/Timeout: Performed Procedure in detail: Patient placed in left lateral decubitus position. Time out was performed. Procedural sedation was administered with Versed and Fentanyl. A bite block was placed. the scope was inserted into the mouth and advanced through the esophagus and into the stomach. The stomach was not notable for diffuse gastritis no active hemorrhage or ulceration. Two random gastric biopsies were taken with the forceps, hemostasis was observed The pylorus was intubated and the duodenum was normal to the 2nd portion. The scope was retroflexed within the stomach and there was a small hiatal hernia. The scope was withdrawn into the esophagus the Z line was seen at 40 cm from the incisions. There was no Garcia's esophagitis or masses or strictures. Stomach was desufflated and scope removed. Patient tolerated procedure well. Sedation minutes: 15 Findings: gastritis and hiatal hernia Specimen(s): other (Gastric biopsy) Complications: none Impression: Gastritis Post-procedure Recommendations: Continue medication(s) (Protonix) Disposition: ICU
--- NOTE | 2020-07-22 11:30 | SUR.PHASEI ---
Report called to [facility]
--- NOTE | 2020-07-22 11:43 | SUR.PHASEI ---
patient able to transfer to ICU
--- NOTE | 2020-07-22 11:52 | SUR.PHASEI ---
patient transferred to the ICU by Mickie Nickerson with pulse ox.
--- NOTE | 2020-07-22 12:08 | PC.NURSE ---
pt initially npo for pending egd which was completed and he returned to room 228 @ 1200- sleepy but appropriate- weaned off o2 with room air spo2 99% - pt still has not voided and passing flatus- taking diet well denies pain
--- NOTE | 2020-07-22 16:03 | PM.PN.1 ---
Subjective Subjective Date Patient Seen: 07/22/20 Time Patient Seen: 09:00 Interval history: Patric Dejesus is a 70 year old male who was admitted for GI bleeding after he had dark tarry stools. He underwent EGD today which revealed a hiatal hernia and gastritis. He tolerated dinner. Repeat Hg improved from 10.9 to 11.6 after endoscopy. He tolerated initial meal this evening. He remains on IV protonix. Exam Vital Signs (past 8 hours): - 07/22/20 10:17 07/22/20 11:12 07/22/20 11:17 Temperature 97.0 F L 97.0 F L Pulse Rate 76 68 66 Respiratory Rate 16 12 7 L Blood Pressure 139/90 112/80 109/72 Pulse Oximetry 99 92 98 07/22/20 11:22 07/22/20 11:27 07/22/20 11:32 Temperature Pulse Rate 65 65 66 Respiratory Rate 7 L 12 16 Blood Pressure 101/71 107/71 109/72 Pulse Oximetry 97 97 98 07/22/20 11:42 07/22/20 12:00 07/22/20 15:00 Temperature 97.5 F L 98.7 F Pulse Rate 64 79 74 Respiratory Rate 8 L 20 18 Blood Pressure 93/64 125/69 106/69 Pulse Oximetry 93 99 99 Oxygen Delivery Method Room Air Oxygen Flow Rate 0 Narrative Exam Narrative: PE: Gen: Alert, oriented, chronically ill appearing 70 y.o. male, appears dry HEENT: normocephalic, atraumatic, conjunctiva clear, sclera non-icteric, oral mucosa pink and moist Neck: supple, full ROM, no JVD, trachea is midline Resp: Lungs CTA, non-labored breathing CV: RRR, no murmur or rubs Abd: soft, non-tender, normoactive BTs Skin: no lesions or rashes, dry and intact Neuro: Alert and oriented X 4 w/no focal deficits. Speech clear and coherent. Extremities: moves all 4 extremities, is ambulatory, negative Ranjit?s sign Psyche: normal mood and affect. Objective Labs Result Diagrams: 07/22/20 20:11 07/22/20 04:47 Labs: Laboratory Results - last 24 hr 07/21/20 07/21/20 07/21/20 19:30 19:30 19:30 WBC 6.5 RBC 3.56 L Hgb 12.2 L Hct 35.9 L MCV 100.7 H MCH 34.3 H MCHC 34.1 RDW 17.6 H Plt Count 213 Neut % (Auto) 73.6 Lymph % (Auto) 16.4 L [place] % (Auto) 7.7 Eos % (Auto) 1.3 L Baso % (Auto) 1.0 Neut # (Auto) 4800 Lymph # (Auto) 1100 [place] # (Auto) 500 Eos # (Auto) 100 Baso # (Auto) 100 PT 16.2 H INR 1.4 H APTT 27 Sodium 134 L Potassium 3.6 Chloride 98 Carbon Dioxide 19 L BUN 14 Creatinine 0.53 L Estimated GFR > 60.0 BUN/Creatinine Ratio 26.4 H Glucose 147 H Hemoglobin A1c Lactate Calcium 9.4 Magnesium Total Bilirubin 2.0 H AST 121 H ALT 76 H Alkaline Phosphatase 59 Ammonia Total Protein 6.9 Albumin 3.9 Globulin 3.0 Albumin/Globulin Ratio 1.3 Nasal Screen MRSA (PCR) Ethyl Alcohol < 10 COVID-19 PCR Blood Type Antibody Screen 07/21/20 07/21/20 07/21/20 19:30 19:30 19:30 WBC RBC Hgb Hct MCV MCH MCHC RDW Plt Count Neut % (Auto) Lymph % (Auto) [place] % (Auto) Eos % (Auto) Baso % (Auto) Neut # (Auto) Lymph # (Auto) [place] # (Auto) Eos # (Auto) Baso # (Auto) PT INR APTT Sodium Potassium Chloride Carbon Dioxide BUN Creatinine Estimated GFR BUN/Creatinine Ratio Glucose Hemoglobin A1c Lactate 2.1 Calcium Magnesium Total Bilirubin AST ALT Alkaline Phosphatase Ammonia < 9 L Total Protein Albumin Globulin Albumin/Globulin Ratio Nasal Screen MRSA (PCR) Ethyl Alcohol COVID-19 PCR Blood Type A Positive Antibody Screen Negative 07/21/20 07/21/20 07/21/20 21:01 21:01 22:00 WBC RBC Hgb 11.6 L Hct 33.6 L MCV MCH MCHC RDW Plt Count Neut % (Auto) Lymph % (Auto) [place] % (Auto) Eos % (Auto) Baso % (Auto) Neut # (Auto) Lymph # (Auto) [place] # (Auto) Eos # (Auto) Baso # (Auto) PT INR APTT Sodium Potassium Chloride Carbon Dioxide BUN Creatinine Estimated GFR BUN/Creatinine Ratio Glucose Hemoglobin A1c 5.7 Lactate Calcium Magnesium Total Bilirubin AST ALT Alkaline Phosphatase Ammonia Total Protein Albumin Globulin Albumin/Globulin Ratio Nasal Screen MRSA (PCR) Ethyl Alcohol COVID-19 PCR Negativen Blood Type Antibody Screen 07/21/20 07/22/20 07/22/20 22:50 04:47 04:47 WBC 6.5 RBC 3.12 L Hgb 10.9 L Hct 31.7 L MCV 101.5 H MCH 34.9 H MCHC 34.4 RDW 17.5 H Plt Count 175 Neut % (Auto) 61.4 Lymph % (Auto) 26.2 [place] % (Auto) 8.6 Eos % (Auto) 2.7 Baso % (Auto) 1.1 Neut # (Auto) 4000 Lymph # (Auto) 1700 [place] # (Auto) 600 Eos # (Auto) 200 Baso # (Auto) 100 PT INR APTT Sodium 136 L Potassium 3.4 Chloride 100 Carbon Dioxide 24 BUN 14 Creatinine 0.51 L Estimated GFR > 60.0 BUN/Creatinine Ratio 27.5 H Glucose 114 H Hemoglobin A1c Lactate Calcium 8.8 Magnesium 2.0 Total Bilirubin 2.1 H AST 99 H ALT 69 H Alkaline Phosphatase 49 Ammonia Total Protein 6.3 Albumin 3.4 L Globulin 2.9 Albumin/Globulin Ratio 1.2 Nasal Screen MRSA (PCR) Negative for mrsa Ethyl Alcohol COVID-19 PCR Blood Type Antibody Screen Assessment & Plan Assessment & Plan narrative: Patric Dejesus is a 70 year old male with PMH of DM2, HTN, and alcohol use who was admitted for upper GI bleeding. EGD today revealed gastritis and a hiatal hernia. Suspected upper GI bleed, acute, present on admission, improved. - Hg trend 11.6 > 10.9 > 11.6 - continue protonix IV BID - anticipate discharge tomorrow - advance diet as tolerated - EGD with DR. Velasquez showing gastritis and hiatal hernia. 2. Elevated liver enzymes, - suspect in the setting of EtOH use. Will continue to follow. 3, Alcohol dependence with potential for alcohol withdrawal -[facility] protocol -IV ativan 0.5 mg q 4 hours as needed for withdrawal 4. Diabetes type 2 with an A1c of 5.7 -Insulin low dose correctional scale q 6 hours -POC glucose ACHS 5. Essential hypertension, chronic, present on admission -He has been administered metoprolol tartrate 25 mg bid, first dose given tonight -[facility] Plan: Consults: Dr. Velasquez, General Surgery, consult and involvement is appreciated. Code: Full Dispo: anticipate discharge home likely tomorrow. Quality VTE Deep Vein Thrombosis/Pulmonary Embolism Present on Admission: No
[2020-07-22 20:20] LABS: Add Manual Diff / Slide Review NO; Basophils Absolute Auto 100 /uL (0-100); Basophils Percent Auto 0.9 % (0-2); Eosinophils Absolute Auto 300 /uL (0-450); Eosinophils Percent Auto 4.3 % (2-4); Hematocrit 33.8 % (41-53); Hemoglobin 11.6 g/dL (13.5-17.5); Lymphocytes Absolute Auto 1900 /uL (1100-4500); Lymphocytes Percent Auto 25.2 % (25-40); Mean Corpuscular HGB Conc 34.4 % (30-36); Mean Corpuscular Hemoglobin 34.8 PG (26-34); Mean Corpuscular Volume 101.3 fL (80-100); Monocytes Absolute Auto 500 /uL (0-900); Monocytes Percent Auto 6.8 % (3-14); Neutrophils Absolute Auto 4800 /uL (1500-7000); Neutrophils Percent Auto 62.8 % (50-75); Platelet Count 199 X10^3/uL (150-400); Red Blood Cell Count 3.34 X10^6/uL (4.5-5.9); Red Cell Distribution Width 17.7 % (11.6-14.8); White Blood Cell Count 7.7 X10^3/uL (4.5-11.0)
[2020-07-23 05:00] VITALS: BP 123/80; PULSE 86; RESP 18; TEMP 36.8; O2SAT 97
[2020-07-23 05:08] LABS: Add Manual Diff / Slide Review NO; Basophils Absolute Auto 100 /uL (0-100); Eosinophils Absolute Auto 300 /uL (0-450); Eosinophils Percent Auto 5.1 % (2-4); Hemoglobin 10.4 g/dL (13.5-17.5); Lymphocytes Absolute Auto 1700 /uL (1100-4500); Lymphocytes Percent Auto 29.7 % (25-40); Mean Corpuscular HGB Conc 34.7 % (30-36); Mean Corpuscular Volume 100.6 fL (80-100); Monocytes Absolute Auto 600 /uL (0-900); Neutrophils Absolute Auto 3100 /uL (1500-7000); Neutrophils Percent Auto 54.2 % (50-75); Platelet Count 148 X10^3/uL (150-400); Red Blood Cell Count 2.98 X10^6/uL (4.5-5.9); Red Cell Distribution Width 17.1 % (11.6-14.8); White Blood Cell Count 5.6 X10^3/uL (4.5-11.0)
[2020-07-23 05:13] LABS: Alanine Aminotransferase 52 IU/L (<50); Albumin 3.1 g/dL (3.5-5.0); Albumin Globulin Ratio 1.1 (1.0-2.8); Alkaline Phosphatase 46 U/L (38-126); Aspartate Aminotransferase 69 IU/L (17-59); BUN Creatinine Ratio 24.6 (6-22); Bilirubin Total 1.9 mg/dL (0.2-1.3); Bilirubin Unconjugated 1.6 mg/dL (0.0-1.1); Blood Urea Nitrogen 14 mg/dL (9-20); Calcium 8.6 mg/dL (8.4-10.2); Carbon Dioxide 28 mmol/L (22-32); Chloride 98 mmol/L (98-107); Estimated Glomerular Filt Rate > 60.0 mL/min (>60); Globulin 2.7 g/dL (1.7-4.1); Glucose 113 mg/dL (80-110); HEMOLYSIS < 15 (0-50); Potassium 3.1 mmol/L (3.4-5.1); Sodium 132 mmol/L (137-145); Total Protein 5.8 g/dL (6.3-8.2)
[2020-07-23 07:48] LABS: COVID19 -Nasal RAPID Negative (Negative)
[2020-07-23 08:00] VITALS: BP 133/76; PULSE 79; RESP 16; TEMP 36.6; O2SAT 96
[2020-07-23] MEDS: PANTOPRAZOLE 40 MG VIAL IV ×2 (08:58→21:27)
[2020-07-23] MEDS: SODIUM CHLORIDE 0.9% FLUSH 10 ML IV ×2 (08:58→21:27)
[2020-07-23] MEDS: MULTIVITAMIN 1 TABLET 1 TAB PO (08:58)
[2020-07-23] MEDS: FOLIC ACID 1 MG TABLET PO (08:58)
[2020-07-23] MEDS: THIAMINE 100 MG TABLET PO (08:58)
--- NOTE | 2020-07-23 10:33 | CM.DPC ---
Addendum entered by Magaly Pierson R.N. 07/23/20 12:25: P.T. is recommending 24 hour caregiver versus long-term. Spoke to patient about long-term, and suggestion for rehab. Let him know that [facility] is across the street, and may be able to work with him to get him stronger to go home. He stated, how will I get there, do I need to take a walker? Let him know that facility would transport. Updated April at [facility]. She has reviewed and stated that they may not be able to rehab him on GI bleed diagnosis alone, but if anemia is indicated, may be able to rehab with this. Updated Dr. Felix, and let him know about diagnosis, which he will look at. Updated him that patient can go tomorrow as long as diagnosis is changed. Will complete PASSR today. Original Note: DCP Cont: Patient could be discharged home today. Spoke to patient. He will be potentially going home today. P.T. has been ordered secondary to weakness. Asked patient if he felt comfortable going home, for he has no family. Mentioned that he may be going home with a walker. Patient stated, why, I just use the bus system. Mentioned that it would benefit with him getting around the house. Also, asked patient if he has a way to get home, or if he could call friends. Stated, I'm not sure, a taxi is an option. Patient has not yet worked with P.T, and it is noted that primary insurance is Medicare, and [employer] is secondary. He is inpatient and would qualify for skilled by tomorrow. Went ahead and sent referral over to April, and she will review. Let her know that patient will work with P.T. first, and see how he does. P: DCP to continue to follow. If patient can go home, will pursue home health. Other option is long-term, and would qualify for tomorrow. Magaly Pierson RN/Light Oil Operator
--- NOTE | 2020-07-23 11:08 | PT.IIE ---
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 Social History Household Members none Living Arrangements Apartment/Condo Number of Floors (Floors) One Floor Number of Stairs To Enter/Railing? 15 steps with bilateral wide rails to get to his 2nd level apartment: pt uses R rail to ascend Home Environment High Toilet,Walk in Shower Home Equipment Hand Held Shower,Grab Bars In Shower Employment Status Retired M2 PT-IP Current Condition Start: 07/23/20 12:30 Freq: NEEDED Status: Active Protocol: Document 07/23/20 11:08 AB (Rec: 07/23/20 12:49 AB [id number]) Physical Therapy Current Condition Current Condition Evaluation Date 07/23/20 Treatment Diagnosis gastritis; hiatal hernia; difficulty in walking Onset Date 07/21/20 Precautions Other Precautions falls M3 PT-IP Subjective Start: 07/23/20 12:30 Freq: NEEDED Status: Active Protocol: Document 07/23/20 11:08 AB (Rec: 07/23/20 12:49 AB [id number]) Subjective Physical Therapy Visit Type Type Initial Evaluation Visit Start Time 11:08 Visit Stop Time 11:37 Total Visit Minutes 29 Number of LEGISLATIVE ASSISTANT Visits 0 Physical Therapy Visit Comments Patient Comments pt is agreeable to do PT Therapy Pain Assessment Pain Present Pain Present Denied Pain M4 PT-IP Mobility and Gait Start: 07/23/20 12:30 Freq: NEEDED Status: Active Protocol: Document 07/23/20 11:08 AB (Rec: 07/23/20 12:49 AB [id number]) PT-Bed Mobility Assessment Supine to Sit Supine to Sit Contact Guard Assistance PT-Transfer Assessment Sit to and From Stand Sit to and from Stand Moderate Assistance,1 Person Assistance,Use of Upper Extremities Equipment Transfer Assistive Device Gait Belt,Front Wheeled Walker Orthotic/Prosthetic Devices or Brace: No Transfers Transfer Destination Chair Transfer Technique Stand Step Pivot Transfer Ability Level of Assist Moderate Assistance,1 Person Assistance,Use of Upper Extremities Comments Mobility Comments completed supine to sit x 3 attempts before able to complete task. pt able to sit on EOB CGA. completed sit to stand mod A and cues. pt increase posterior trunk LOB requiring mod A to maintain stability. cued to use FWW for support. completed step transfer to chair using FWW mod A. pt educated on safety and use of FWW. completed ambulation in room mod A and cues. presents with unsteady shuffling gait. pt agreed to sit up on chair. positioned on chair. call light and table placed within reach. Gait Assessment Gait Gait Assistance Required: Moderate Assistance Distance (Feet) 25 Able to Maintain Weight Bearing Status Yes During Gait Assistive Devices Assistive Device Gait Belt,Front Wheeled Walker Orthotic/Prosthetic Devices or Brace: No Gait Deviations General Gait Pattern Antalgic,Decreased Stride Length,Decreased Feet Clearance,Flexed Trunk,Step-to Gait Factors Limiting Gait Function Factors Limiting Gait Function Decreased Activity Tolerance, Decreased Strength,Difficulty Following Directions,Poor Balance,Poor Safety Awareness Comments Gait Comments pls refer to mobility section for details PT-Balance Assessment Sitting Balance and Reactions Static Sitting Balance Ability Good Dynamic Sitting Balance Ability Fair Standing Balance and Reactions Static Standing Balance Ability Poor Dynamic Standing Balance Ability Poor Device Used FWW M5 PT-IP Objective Assessments Start: 07/23/20 12:30 Freq: NEEDED Status: Active Protocol: Document 07/23/20 11:08 AB (Rec: 07/23/20 12:49 AB [id number]) Orientation Orientation/Cognition Level of Alertness Alert Orientation Name Safety Awareness Decreased Safety Awareness Gross Range of Motion Lower Extremity ROM Assessment Within Functional Limits Strength Lower Extremity Strength Assessment Bilaterally Impaired Hip 3+ Knee 3+ Ankle 3+ Muscle Tone Muscle Tone WNL Yes M6 PT-IP Treatment Start: 07/23/20 12:30 Freq: NEEDED Status: Active Protocol: Document 07/23/20 11:08 AB (Rec: 07/23/20 12:49 AB [id number]) Physical Therapy Treatment Education Education Provided Safety M7 PT-IP Assessment and Plan Start: 07/23/20 12:30 Freq: NEEDED Status: Active Protocol: Document 07/23/20 11:08 AB (Rec: 07/23/20 12:49 AB [id number]) PT Summary Assessment and Plan Potential Rehabilitation Potential Fair Status of Condition at Evaluation Stable Summary Impairments Pain,ROM,Strength,Balance, Coordination,Sensation,Tone, Cognition,Bed Mobility, Transfers,Gait,Activity Tolerance Assessment Summary pt requiring mod A with mobility and will require assistance at home. (+) posterior LOB during standing and requires mod A for stability during standing and ambulation. pt has 15 steps to get to his apartment but is not appropriate to do stair climbing at this time due to decrease standing balance and activity tolerance. pt lives alone and needs to be more independent than current level to be safe at home. pt will require SNF rehab at this time . Goals Bed Mobility Goal Independent Transfer Goal Standby Assistance,Front Wheeled Walker Gait Goal Standby Assistance,Front Wheel Walker Gait Distance 150 Other Goals up/down 15 steps R rail SBA Days to Meet Goals 10 Frequency of Treatment Frequency Of Treatment Once a Day Treatment Plan Physical Therapy Treatment Plan Bed Mobility Training,Transfer Training,Gait Training, Therapeutic Exercise,Balance Retraining,Discharge Planning, Hot or Cold Pack,Neuromuscular Re-ed,Coordination Retraining Recommendations To Nursing Amount of Assist Needed 1 Person Assist Discharge Recommendations PT Discharge Recommendations SNF Rehab Equipment Needed for Home Before FWW if pt goes home Discharge Transportation Needs at Discharge Wheelchair/Cabulance
[2020-07-23 12:00] VITALS: BP 111/80; PULSE 109; RESP 20; TEMP 36.5; O2SAT 98
--- NOTE | 2020-07-23 12:39 | P.PN_ITS ---
Exam Vital Signs (past 8 hours): - 07/23/20 05:00 07/23/20 08:00 Temperature 98.3 F 97.8 F Pulse Rate 86 79 Respiratory Rate 18 16 Blood Pressure 123/80 133/76 Pulse Oximetry 97 96 Oxygen Delivery Method Room Air Oxygen Flow Rate 0 Narrative Exam Narrative: PE: Gen: Alert, oriented, chronically ill appearing 70 y.o. C[place] matty male, appears dry HEENT: normocephalic, atraumatic, conjunctiva clear, sclera non-icteric, oral mucosa pink and moist Neck: supple, full ROM, no JVD, trachea is midline Resp: Lungs CTA, non-labored breathing CV: RRR, no murmur or rubs Abd: soft, non-tender, normoactive BTs Skin: no lesions or rashes, dry and intact Neuro: Alert and oriented X 4 w/no focal deficits. Speech clear and coherent. Extremities: moves all 4 extremities, is ambulatory, negative Ranjit?s sign Psyche: normal mood and affect. Objective Labs Result Diagrams: 07/23/20 04:25 07/23/20 04:25 Labs: Laboratory Results - last 24 hr 07/21/20 07/22/20 07/23/20 22:00 20:11 04:25 WBC 7.7 5.6 RBC 3.34 L 2.98 L Hgb 11.6 L 10.4 L Hct 33.8 L 30.0 L MCV 101.3 H 100.6 H MCH 34.8 H 35.0 H MCHC 34.4 34.7 RDW 17.7 H 17.1 H Plt Count 199 148 L Neut % (Auto) 62.8 54.2 Lymph % (Auto) 25.2 29.7 [place] % (Auto) 6.8 10.0 Eos % (Auto) 4.3 H 5.1 H Baso % (Auto) 0.9 1.0 Neut # (Auto) 4800 3100 Lymph # (Auto) 1900 1700 [place] # (Auto) 500 600 Eos # (Auto) 300 300 Baso # (Auto) 100 100 Sodium Potassium Chloride Carbon Dioxide BUN Creatinine Estimated GFR BUN/Creatinine Ratio Glucose Calcium Total Bilirubin Conjugated Bilirubin Unconjugated Bilirubin AST ALT Alkaline Phosphatase Total Protein Albumin Globulin Albumin/Globulin Ratio COVID-19 PCR Negative 07/23/20 04:25 WBC RBC Hgb Hct MCV MCH MCHC RDW Plt Count Neut % (Auto) Lymph % (Auto) [place] % (Auto) Eos % (Auto) Baso % (Auto) Neut # (Auto) Lymph # (Auto) [place] # (Auto) Eos # (Auto) Baso # (Auto) Sodium 132 L Potassium 3.1 L Chloride 98 Carbon Dioxide 28 BUN 14 Creatinine 0.57 L Estimated GFR > 60.0 BUN/Creatinine Ratio 24.6 H Glucose 113 H Calcium 8.6 Total Bilirubin 1.9 H Conjugated Bilirubin 0.0 Unconjugated Bilirubin 1.6 H AST 69 H ALT 52 H Alkaline Phosphatase 46 Total Protein 5.8 L Albumin 3.1 L Globulin 2.7 Albumin/Globulin Ratio 1.1 COVID-19 PCR Assessment & Plan Assessment & Plan narrative: Patric Dejesus is a 70 year old male with PMH of DM2, HTN, and alcohol use who was admitted for upper GI bleeding. EGD today revealed gastritis and a hiatal hernia. 1. upper GI bleed, acute, present on admission, improved. - Hg trend 11.6 > 10.9 > 11.6 > 10.4. - continue protonix IV BID until discharge, then oral protonix. - advance diet as tolerated - EGD with DR. Velasquez showing gastritis and hiatal hernia. Follow up biopsies likely in surgery clinic. 2. Acute blood loss anemia, present on admission - likely secondary to above - continue to follow h/h, drop from 11.6 to 10.4 today. Will continue to follow. 3. Elevated liver enzymes, - suspect in the setting of EtOH use. Will continue to follow and have been improving. 4, Alcohol dependence with potential for alcohol withdrawal -[facility] protocol -IV ativan 0.5 mg q 4 hours as needed for withdrawal, no evidence of withdrawal so far. 4. Diabetes type 2 with an A1c of 5.7 -Insulin low dose correctional scale q 6 hours -POC glucose ACHS 5. Essential hypertension, chronic, present on admission -He has been administered metoprolol tartrate 25 mg bid, first dose given tonight -[facility] tomorrow Plan: Consults: Dr. Velasquez, General Surgery, consult and involvement is appreciated. Code: Full Dispo: per PT evaluations plan for SNF discharge tomorrow. Will repeat COVID 19 today. Quality VTE Deep Vein Thrombosis/Pulmonary Embolism Present on Admission: No
[2020-07-23 13:56] LABS: COVID19 -Nasal RAPID Negative (Negative)
[2020-07-23 15:23] VITALS: BP 122/64; PULSE 82; RESP 18; TEMP 36.3; O2SAT 99
[2020-07-23 19:49] VITALS: BP 123/64; PULSE 100; RESP 20; TEMP 36.1
--- NOTE | 2020-07-23 21:21 | PC.NURSE ---
Pt reports that he takes Lisinopril and [facility]oprolol [facility] but he doesn't know what the strength is. He is hoping that someone can call [facility] tomorrow and find out his strength of medications so that he can start taking them again.
[2020-07-24] VITALS: BP 139/71; PULSE 85; RESP 14; TEMP 36.3; O2SAT 100
[2020-07-24 05:03] VITALS: BP 140/77; PULSE 77; RESP 18; TEMP 36.2; O2SAT 99
[2020-07-24 05:25] LABS: Add Manual Diff / Slide Review NO; Basophils Absolute Auto 100 /uL (0-100); Eosinophils Absolute Auto 300 /uL (0-450); Hematocrit 30.1 % (41-53); Hemoglobin 10.5 g/dL (13.5-17.5); Lymphocytes Absolute Auto 1600 /uL (1100-4500); Lymphocytes Percent Auto 31.9 % (25-40); Mean Corpuscular HGB Conc 34.9 % (30-36); Mean Corpuscular Hemoglobin 35.1 PG (26-34); Mean Corpuscular Volume 100.5 fL (80-100); Monocytes Absolute Auto 600 /uL (0-900); Monocytes Percent Auto 11.8 % (3-14); Neutrophils Absolute Auto 2600 /uL (1500-7000); Neutrophils Percent Auto 50.3 % (50-75); Platelet Count 146 X10^3/uL (150-400); Red Blood Cell Count 2.99 X10^6/uL (4.5-5.9); Red Cell Distribution Width 17.3 % (11.6-14.8); White Blood Cell Count 5.1 X10^3/uL (4.5-11.0)
[2020-07-24 05:28] LABS: Alanine Aminotransferase 44 IU/L (<50); Alkaline Phosphatase 45 U/L (38-126); Aspartate Aminotransferase 61 IU/L (17-59); BUN Creatinine Ratio 20.8 (6-22); Bilirubin Total 1.5 mg/dL (0.2-1.3); Bilirubin Unconjugated 1.3 mg/dL (0.0-1.1); Blood Urea Nitrogen 11 mg/dL (9-20); Calcium 8.6 mg/dL (8.4-10.2); Carbon Dioxide 29 mmol/L (22-32); Chloride 98 mmol/L (98-107); Estimated Glomerular Filt Rate > 60.0 mL/min (>60); Globulin 2.9 g/dL (1.7-4.1); Glucose 119 mg/dL (80-110); HEMOLYSIS < 15 (0-50); Sodium 134 mmol/L (137-145); Total Protein 5.9 g/dL (6.3-8.2)
[2020-07-24 05:35] LABS: Potassium 2.7 mmol/L (3.4-5.1)
[2020-07-24] MEDS: POTASSIUM CHLORIDE 20 MEQ TAB 40 MEQ PO (06:11)
[2020-07-24] MEDS: POTASSIUM CHLORIDE 40 MEQ in SODIUM CHLORIDE 0.9% 500 ML 130 ML IV (06:12)
[2020-07-24] MEDS: SODIUM CHLORIDE 0.9% FLUSH 10 ML IV ×2 (06:12→09:16)
[2020-07-24 08:00] VITALS: BP 98/70; PULSE 108; RESP 18; TEMP 36.2; O2SAT 99
--- NOTE | 2020-07-24 08:17 | PT.IPTN ---
Current Diagnoses Melena (07/21/20) Surgery Performed Operation Date: 07/22/20 11:30 Actual Procedures p Esophagogastroduodenoscopy with biopsy - Nikolas Velasquez MD Physical Therapy Treatment Note M2 PT-IP Current Condition Start: 07/23/20 12:30 Freq: NEEDED Status: Active Protocol: Document 07/23/20 11:08 AB (Rec: 07/23/20 12:49 AB [id number]) Physical Therapy Current Condition Current Condition Evaluation Date 07/23/20 Treatment Diagnosis gastritis; hiatal hernia; difficulty in walking Onset Date 07/21/20 Precautions Other Precautions falls M3 PT-IP Subjective Start: 07/23/20 12:30 Freq: NEEDED Status: Active Protocol: Document 07/24/20 08:09 [facility] (Rec: 07/24/20 08:16 [facility] [id number]) Subjective Physical Therapy Visit Type Type Treatment Note Visit Start Time 07:44 Visit Stop Time 08:01 Total Visit Minutes 17 Number of TRAFFIC SIGN SUPERVISOR Visits 0 Physical Therapy Visit Comments Patient Comments Pt reports he feels tired today Therapy Pain Assessment Pain Present Pain Present Denied Pain M4 PT-IP Mobility and Gait Start: 07/23/20 12:30 Freq: NEEDED Status: Active Protocol: Document 07/24/20 08:09 [facility] (Rec: 07/24/20 08:16 [facility] [id number]) PT-Bed Mobility Assessment Supine to Sit Supine to Sit Minimal Assistance,Head of Bed Elevated Scooting Scooting to Edge of Bed Minimal Assistance PT-Transfer Assessment Sit to and From Stand Sit to and from Stand Minimal Assistance,1 Person Assistance,Use of Upper Extremities Equipment Transfer Assistive Device Gait Belt,Front Wheeled Walker Orthotic/Prosthetic Devices or Brace: No Comments Mobility Comments Pt did supine to sit with min A for upper body sitting up in bed. He scooted to EOB with min A and was able to stand with min A. He stood with min A for stability and walked about 5 ft to sink to wash his hands. He stood for about 2 min to wash up. D/t HR inc, pt was returned to chair, where HR resumed to about 110. He was able to perform seated exercises iwthout further inc. He was left with call ligth in hand and chair alarm on Gait Assessment Gait Gait Assistance Required: Minimum Assistance Distance (Feet) 10 Able to Maintain Weight Bearing Status Yes During Gait Assistive Devices Assistive Device Gait Belt,Front Wheeled Walker Orthotic/Prosthetic Devices or Brace: No Gait Deviations General Gait Pattern Decreased Stride Length, Decreased Feet Clearance, Flexed Trunk,Step-to Gait Factors Limiting Gait Function Factors Limiting Gait Function Decreased Activity Tolerance, Decreased Strength,Difficulty Following Directions,Poor Balance,Poor Safety Awareness Comments Gait Comments pls refer to mobility section for details M5 PT-IP Objective Assessments Start: 07/23/20 12:30 Freq: NEEDED Status: Active Protocol: Document 07/23/20 11:08 AB (Rec: 07/23/20 12:49 AB [id number]) Orientation Orientation/Cognition Level of Alertness Alert Orientation Name Safety Awareness Decreased Safety Awareness Gross Range of Motion Lower Extremity ROM Assessment Within Functional Limits Strength Lower Extremity Strength Assessment Bilaterally Impaired Hip 3+ Knee 3+ Ankle 3+ Muscle Tone Muscle Tone WNL Yes M6 PT-IP Treatment Start: 07/23/20 12:30 Freq: NEEDED Status: Active Protocol: Document 07/24/20 08:09 [facility] (Rec: 07/24/20 08:16 [facility] [id number]) Physical Therapy Treatment Exercises Exercises Ankle Pumps Other Treatments Other Treatment Performed marches & knee ext/flex x30 M7 PT-IP Assessment and Plan Start: 07/23/20 12:30 Freq: NEEDED Status: Active Protocol: Document 07/24/20 08:09 [facility] (Rec: 07/24/20 08:16 [facility] [id number]) PT Summary Assessment and Plan Summary Assessment Summary Pt required less assistance for mobility today but was limited by his inc in HR during activity so was unable to walk further. He did stillr equire min A for steadiness . with his improvemetn in mobility, he shows he is a good canidate for SNF rehab to [facility] to work on his mobility and inc his safety to dec fall risk. Goals Bed Mobility Goal Independent Transfer Goal Standby Assistance,Front Wheeled Walker Gait Goal Standby Assistance,Front Wheel Walker Gait Distance 150 Other Goals up/down 15 steps R rail SBA Days to Meet Goals 10 Frequency of Treatment Frequency Of Treatment Once a Day Treatment Plan Physical Therapy Treatment Plan Bed Mobility Training,Transfer Training,Gait Training, Therapeutic Exercise,Balance Retraining,Discharge Planning, Hot or Cold Pack,Neuromuscular Re-ed,Coordination Retraining Recommendations To Nursing Amount of Assist Needed 1 Person Assist Discharge Recommendations PT Discharge Recommendations SNF Rehab Transportation Needs at Discharge Wheelchair/Cabulance
[2020-07-24] MEDS: FOLIC ACID 1 MG TABLET PO (09:15)
[2020-07-24] MEDS: THIAMINE 100 MG TABLET PO (09:15)
[2020-07-24] MEDS: MULTIVITAMIN 1 TABLET 1 TAB PO (09:15)
[2020-07-24] MEDS: PANTOPRAZOLE 40 MG VIAL IV (09:16)
--- NOTE | 2020-07-24 11:15 | CM.DPC ---
DCP continued: EMR reviewed: CM/RN called Georgina at [facility] after morning rounds to check on D/C plan. Georgina stated they can accept patient today for admission at 1:30pm. Dr. Emmanuel notified and patients nurse notified and gave patients nurse the report number. CM/RN faxed Copy of PASRR to [facility], D/C orders and medication list for their review. Copied the PASRR and gave copy to NICKIE Oliveira to Scan into patients chart and placed the original into patients chart to go with patient at D/C. Patient notified and stated understanding. Estrella Loyola RN
[2020-07-24] MEDS: INSULIN ASPART 100 UNIT/ML INSULN PEN SUBCUT (12:14)
--- NOTE | 2020-07-24 12:55 | PM.DS.1 ---
History of Present Illness History of Present Illness Chief complaint: GI Bleed / Syncope Narrative: Patric Dejesus is a 70 y.o.male with self reported diabetes type 2 and hypertension who states he fell and has been feeling weak. Does not remember details of the fall, only that he has fallen twice earlier today and he has been having dark tarry stools. Stated he underwent EGD at [facility] in 2008. He is retired [employer] after 22 years of service, and goes to the [facility] in [facility]. States he has had a number of colonoscopies at [facility] with no abnormal results that he recalls. He stated EMS told him he was sweating profusely, on arrival to the ED he complained of neck pain and was placed in a C-collar. He denies shortness of breath, palpitations or chest pain, has had some nausea but no vomiting, denies dysurea, or constipation, nor has easy bleeding or bruising and denies taking blood thinners. He does endorse drinking 3-4 glasses of wine daily and has leg tremors when he has had to withdraw. He has chronic bilateral lower extremity, specifically feet numbing. Patient reportedly drinks 3-4 glasses of wine daily, but states his last drink was a day and a half ago. States when he has had to stop drinking, he has lower extremity tremors. In the emergency department they did a cervical and head x-ray which did not reveal any abnormalities. He was given Protonix IV 80 mg and thiamine. Patient is temperature was 97.6?, blood pressure 174/88, heart rate 84, respiratory rate 15, 99% oxygen saturation, he weighs 61.5 kg and has a BMI of 19.5. WBC 6.5, RBC 3.56, hemoglobin 11.6, hematocrit 33.6, platelet count 213, INR is 1.4, PT 16.2 seconds, sodium 134, potassium 3.6, chloride 98, bicarb 19, BUN 14, creatinine 0.53, GFR greater than 60, glucose 147, A1c is pending, total bilirubin is 2.0, AST 121, ALT 76, alk-phos 59, ammonia normal at less than 9, ethyl alcohol normal at less than 10, COVID-19 negative. Of note, patient states he does not recall medical conditions his parents or other primary family members have had. Discharge Providers Provider Date of admission: 08/23/20 22:28 Discharge Date: 07/24/20 Consults: 07/21/20 22:45 Consult to Physician Routine Comment: Consulting Provider: Nikolas Velasquez Reason for consultation: Suspected upper GI bleed Has provider been notified: Yes 07/23/20 08:41 Consult to Physical Therapy Evaluate & Treat Comment: Physician Instructions: Evaluate and Treat Discharge provider: Jerry Emmanuel MD Summary Hospital Course Discharge Diagnosis: 1. Acute upper GI bleed 2. ETOH gastritis 3. Hiatal hernia 4. Acute blood loss anemia 5. Alcohol dependence 6. Transaminitis 7. Type 2 diabetes diet controlled 8. Essential hypertension Procedures: EGD: Diffuse gastritis, hiatal hernia Hospital Course: Patient was admitted due to acute GI bleed. He did not require a transfusion. EGD showed diffuse gastritis and hiatal hernia. He was treated with Protonix. He did not have alcohol withdrawal. He is being [facility] to [facility] due to severe deconditioning. Status at Discharge Cognitive/behavioral status at discharge: oriented Overall status at discharge: patient is not back to baseline Time Spent with Patient Time spent: Less than 30 minutes Exam Vital Signs (past 8 hours): - 07/24/20 05:03 07/24/20 08:00 Temperature 97.2 F L 97.1 F L Pulse Rate 77 108 H Respiratory Rate 18 18 Blood Pressure 140/77 98/70 Pulse Oximetry 99 99 Oxygen Delivery Method Room Air Oxygen Flow Rate 0 Objective Labs Result Diagrams: 07/24/20 04:40 07/24/20 04:40 Labs: Laboratory Results - last 24 hr 07/23/20 07/24/20 07/24/20 12:55 04:40 04:40 WBC 5.1 RBC 2.99 L Hgb 10.5 L Hct 30.1 L MCV 100.5 H MCH 35.1 H MCHC 34.9 RDW 17.3 H Plt Count 146 L Neut % (Auto) 50.3 Lymph % (Auto) 31.9 Gaines % (Auto) 11.8 Eos % (Auto) 5.0 H Baso % (Auto) 1.0 Neut # (Auto) 2600 Lymph # (Auto) 1600 Gaines # (Auto) 600 Eos # (Auto) 300 Baso # (Auto) 100 Sodium 134 L Potassium 2.7 L* Chloride 98 Carbon Dioxide 29 BUN 11 Creatinine 0.53 L Estimated GFR > 60.0 BUN/Creatinine Ratio 20.8 Glucose 119 H Calcium 8.6 Total Bilirubin 1.5 H Conjugated Bilirubin 0.0 Unconjugated Bilirubin 1.3 H AST 61 H ALT 44 Alkaline Phosphatase 45 Total Protein 5.9 L Albumin 3.0 L Globulin 2.9 Albumin/Globulin Ratio 1.0 COVID-19 PCR Negative Discharge Plan Discharge Plan Patient Disposition: SNF Transfer to: [facility] Consult as needed: Dental, Hearing, Mental health, Podiatry and Vision Discharge orders & Medications Prescriptions: New pantoprazole 40 mg tablet,delayed release (DR/EC) 40 mg PO DAILY Qty: 30 RF: 0 Discharge Health Status Multidrug resistant organism: No MDRO Precautions: [place] Diet/Activity/Treatments Diet: Diet as Tolerated Liquid consistency: Normal/Thin Food texture: Regular [facility] Reason for rehabilitation: Recovery r/t decondition Rehab type: Physical therapy and Occupational therapy Visit Report/Discharge Packet Visit Report Forms: Patient Portal/API, Stroke Signs & Symptoms Quality VTE Deep Vein Thrombosis/Pulmonary Embolism Present on Admission: No
== END 2020-07-24 13:30 | DRG 378 ==
LOC: ED 19:33 → AC 22:29 → ICU 22:30
PROVIDERS: Internal Medicine; Surgery; Admitting Provider Nurse Practitioner Family; Emergency Provider Emergency Medicine; Referring Provider Emergency Medicine; Visit Provider Nurse Practitioner Family
PROC: 0DJ08ZZ Inspection of Upper Intestinal Tract, Via Natural or Artificial Opening Endoscopic (ICD-10-PCS; CPT 43235; principal; 2020-07-22 11:30)
DX: K29.21 Alcoholic gastritis with bleeding (principal); D62 Acute posthemorrhagic anemia; R74.0 Nonspecific elevation of levels of transaminase and lactic acid dehydrogenase [LDH]; F10.20 Alcohol dependence, uncomplicated; Y90.0 Blood alcohol level of less than 20 mg/100 ml; R55 Syncope and collapse; E11.9 Type 2 diabetes mellitus without complications; I10 Essential (primary) hypertension; K44.9 Diaphragmatic hernia without obstruction or gangrene; W18.30XA Fall on same level, unspecified, initial encounter; Z91.81 History of falling; Z11.59 Encounter for screening for other viral diseases
CPT/HCPCS: 36415; 70450; 72125; 80048; 80053; 80076; 80320; 82140; 82272; 82962; 83036; 83605; 83735; 85014; 85018; 85025; 85610; 85730; 86850; 86900; 86901; 87635; 87797; 94760; 94762; 96365; 96366; 96375; 97161; 97530; 99284; C9113; J2250; J2354; J3010; J3475; J3480

== ENCOUNTER → 2020-08-03 13:59 | Outpatient (ROUT) | payer SELFPAY ==
[2020-07-21 23:44] VITALS: BMI 19.4
[2020-08-07 16:29] LABS: COVID19 Sendout Not Detected (Not Detected)
== END ==
PROVIDERS: Visit Provider Nurse Practitioner
DX: Z11.59 Encounter for screening for other viral diseases (principal)
CPT/HCPCS: 87635

== ENCOUNTER 2023-02-16 19:07 | Emergency (ER) | payer MEDICARE, OTHER, SELFPAY ==
[2020-07-21 23:44] VITALS: BMI 19.4
[2023-02-16] VITALS (10 sets, daily range): BP systolic 151–169; BP diastolic 72–78; PULSE 72–80; RESP 18; TEMP 36.6; O2SAT 97–98; BMI 25.8
--- NOTE | 2023-02-16 19:14 | ED.UPPEXIN ---
HPI - Extremity Injury (Upper) <COURT Duggan - Last Filed: 02/16/23 20:12> General Chief Complaint: Back Pain/Injury Stated Complaint: Back Pain Time Seen by Provider: 02/16/23 19:14 History of Present Illness HPI narrative: This is a 72-year-old male who presents emergency department via EMS from the [facility] on the [facility] complaining low back pain, urinary incontinence which has been worse over last few days. Patient was staying in the transient housing does not have a plan on where he would stay otherwise. Patient presents to the emergency department today complaining of worsening low back pain and frequent urinary incontinence in his sitting in urine. He has a history of hypertension, diabetes type 2 alcohol dependence, upper GI bleeding and falls. EMS states that patient has been sitting in his diaper since Wednesday, today is Wednesday. His penis is erythematous, complains of pain and a rash related to sitting in urine. Patient recently broke his leg over the last 2 months, was staying at the [facility] after prolonged hospitalization, a mary carmen was put in his leg secondary to the fracture and patient was kicked out of his apartment. He is homeless other [place] states that he can not find his while it but he has his ID. All of the belongings that were at the hotel were brought with him tonight. Related Data Previous Rx's Medication Instructions Recorded pantoprazole 40 mg tablet,delayed 40 mg PO DAILY #30 tabs 07/24/20 release Allergies Allergy/AdvReac Type Severity Reaction Status Date / Time No Known Drug Allergies Allergy Verified 07/21/20 19:25 Review of Systems <COURT Duggan - Last Filed: 02/16/23 20:12> Review of Systems ROS Unobtainable: All systems reviewed & are unremarkable except as noted in HPI and below Patient History <COURT Duggan - Last Filed: 02/16/23 20:12> Medical History (Updated 02/17/23 @ 17:51 by Gera Moeller DO) Alcohol dependence Diabetes type 2, no ocular involvement Hypertension Surgical History History of repair of hiatal hernia Family History Mother Unknown family medical history Father Unknown family medical history Social History marital status: unmarried,single household members: none housing: house Previous occupational history: Retired, worked in operations on [employer] Smoking Status: Never smoker alcohol intake: current additional social history: Goes to [facility] Smoking Status: Never smoker alcohol intake frequency: 3 or more drinks per day Alcohol type: beer Substance Use Type: does not use Exam <COURT Duggan - Last Filed: 02/16/23 20:12> Narrative Exam Narrative: Reviewed vitals signs and nursing notes. General: cooperative, in no acute distress, well groomed, smells of urine, pleasant, interactive, clear speech HEENT: symmetrical facial expressions, moist mucous membranes, neck is supple CV: regular rate and rhythm, warm extremities Respiratory: Without abnormal breath sounds, normal work of breathing, without tachypnea, hypoxia. GI: abdomen soft, nontender to palpation in all quadrants, nondistended, without masses, rebound tenderness or CVA tenderness bilaterally. MSK: moves all extremities, neurovascularly intact, no weakness, normal tone Skin: brisk capillary refill, without rash or wound Neuro: normal speech and cognition, A&O x3, ambulatory, clear speech Initial Vital Signs Initial Vital Signs: Vital Signs Temperature 97.9 F 02/16/23 19:05 Pulse Rate 72 02/16/23 19:05 Respiratory Rate 18 02/16/23 19:05 Blood Pressure 169/76 H 02/16/23 19:05 Pulse Oximetry 98 02/16/23 19:05 Oxygen Delivery Method Room Air 02/16/23 19:05 <Eleazar Hilton DO - Last Filed: 02/18/23 04:57> Initial Vital Signs Initial Vital Signs: Vital Signs Temperature 97.9 F 02/16/23 19:05 Pulse Rate 72 02/16/23 19:05 Respiratory Rate 18 02/16/23 19:05 Blood Pressure 169/76 H 02/16/23 19:05 Pulse Oximetry 98 02/16/23 19:05 Oxygen Delivery Method Room Air 02/16/23 19:05 <Gera Moeller DO - Last Filed: 02/17/23 17:51> Initial Vital Signs Initial Vital Signs: Vital Signs Temperature 97.9 F 02/16/23 19:05 Pulse Rate 72 02/16/23 19:05 Respiratory Rate 18 02/16/23 19:05 Blood Pressure 169/76 H 02/16/23 19:05 Pulse Oximetry 98 02/16/23 19:05 Oxygen Delivery Method Room Air 02/16/23 19:05 Course <COURT Duggan - Last Filed: 02/16/23 20:12> Orders Ordered: Discontinued Medications Acetaminophen (Acetaminophen 325 Mg Tablet) 650 mg PO NOW ONE Stop: 02/17/23 18:02 Last Admin: 02/17/23 18:29 Dose: 650 mg Documented By: BARBARA Hydrocodone Bitart/Acetaminophen (Hydrocodone/Acet 5/325 Tablet) 1 tab PO NOW ONE Stop: 02/16/23 19:29 Last Admin: 02/16/23 20:02 Dose: 1 tab Documented By: OSIRIS Lactated Ringer's (Lactated Ringers) 2,449.41 mls @ 816.47 mls/hr 30 ml/kg infuse over 3 hr (2449.41 ml) IV NOW ONE Stop: 02/16/23 23:34 Last Admin: 02/17/23 08:46 Dose: Not Given Documented By: AT Sodium Chloride (Normal Saline 0.9%) 2,449.41 mls @ 816.47 mls/hr 30 ml/kg infuse over 3 hr (2449.41 ml) IV NOW ONE Stop: 02/16/23 23:35 Last Infusion: 02/17/23 01:10 Dose: 0 mls/hr Documented By: Admin: 02/16/23 21:15 Dose: 816.47 mls/hr Documented By: ALEXYS Vital Signs Vital signs: Vital Signs - 8 hr 02/17/23 11:35 02/17/23 09:50 02/17/23 09:55 Temperature 98.0 F Pulse Rate 65 Respiratory Rate 16 Blood Pressure 151/79 H 148/84 H 141/70 H Pulse Oximetry 98 Oxygen Delivery Method Room Air 02/17/23 10:00 02/17/23 10:05 02/17/23 10:10 Temperature Pulse Rate Respiratory Rate Blood Pressure 160/77 H 150/71 H 151/75 H Pulse Oximetry Oxygen Delivery Method 02/17/23 10:15 02/17/23 10:20 02/17/23 10:25 Temperature Pulse Rate Respiratory Rate Blood Pressure 148/72 H 148/74 H 143/70 H Pulse Oximetry Oxygen Delivery Method 02/17/23 10:30 02/17/23 10:35 02/17/23 10:40 Temperature Pulse Rate Respiratory Rate Blood Pressure 140/71 145/73 H 133/76 Pulse Oximetry Oxygen Delivery Method 02/17/23 10:45 02/17/23 10:50 02/17/23 10:55 Temperature Pulse Rate Respiratory Rate Blood Pressure 145/77 H 155/85 H 159/71 H Pulse Oximetry Oxygen Delivery Method 02/17/23 11:00 02/17/23 11:05 02/17/23 11:10 Temperature Pulse Rate Respiratory Rate Blood Pressure 155/70 H 155/73 H 153/72 H Pulse Oximetry Oxygen Delivery Method 02/17/23 11:15 02/17/23 11:18 02/17/23 11:18 Temperature Pulse Rate 66 Respiratory Rate Blood Pressure 149/72 H 151/79 H Pulse Oximetry 98 Oxygen Delivery Method 02/17/23 17:25 Temperature Pulse Rate 75 Respiratory Rate 15 Blood Pressure 149/75 H Pulse Oximetry 99 Oxygen Delivery Method Room Air <Eleazar Hilton, DO - Last Filed: 02/18/23 04:57> Orders Ordered: Discontinued Medications Acetaminophen (Acetaminophen 325 Mg Tablet) 650 mg PO NOW ONE Stop: 02/17/23 18:02 Last Admin: 02/17/23 18:29 Dose: 650 mg Documented By: NR Hydrocodone Bitart/Acetaminophen (Hydrocodone/Acet 5/325 Tablet) 1 tab PO NOW ONE Stop: 02/16/23 19:29 Last Admin: 02/16/23 20:02 Dose: 1 tab Documented By: KB Lactated Ringer's (Lactated Ringers) 2,449.41 mls @ 816.47 mls/hr 30 ml/kg infuse over 3 hr (2449.41 ml) IV NOW ONE Stop: 02/16/23 23:34 Last Admin: 02/17/23 08:46 Dose: Not Given Documented By: AT Sodium Chloride (Normal Saline 0.9%) 2,449.41 mls @ 816.47 mls/hr 30 ml/kg infuse over 3 hr (2449.41 ml) IV NOW ONE Stop: 02/16/23 23:35 Last Infusion: 02/17/23 01:10 Dose: 0 mls/hr Documented By: Admin: 02/16/23 21:15 Dose: 816.47 mls/hr Documented By: ALEXYS Vital Signs Vital signs: Vital Signs - 8 hr 02/17/23 11:35 02/17/23 09:50 02/17/23 09:55 Temperature 98.0 F Pulse Rate 65 Respiratory Rate 16 Blood Pressure 151/79 H 148/84 H 141/70 H Pulse Oximetry 98 Oxygen Delivery Method Room Air 02/17/23 10:00 02/17/23 10:05 02/17/23 10:10 Temperature Pulse Rate Respiratory Rate Blood Pressure 160/77 H 150/71 H 151/75 H Pulse Oximetry Oxygen Delivery Method 02/17/23 10:15 02/17/23 10:20 02/17/23 10:25 Temperature Pulse Rate Respiratory Rate Blood Pressure 148/72 H 148/74 H 143/70 H Pulse Oximetry Oxygen Delivery Method 02/17/23 10:30 02/17/23 10:35 02/17/23 10:40 Temperature Pulse Rate Respiratory Rate Blood Pressure 140/71 145/73 H 133/76 Pulse Oximetry Oxygen Delivery Method 02/17/23 10:45 02/17/23 10:50 02/17/23 10:55 Temperature Pulse Rate Respiratory Rate Blood Pressure 145/77 H 155/85 H 159/71 H Pulse Oximetry Oxygen Delivery Method 02/17/23 11:00 02/17/23 11:05 02/17/23 11:10 Temperature Pulse Rate Respiratory Rate Blood Pressure 155/70 H 155/73 H 153/72 H Pulse Oximetry Oxygen Delivery Method 02/17/23 11:15 02/17/23 11:18 02/17/23 11:18 Temperature Pulse Rate 66 Respiratory Rate Blood Pressure 149/72 H 151/79 H Pulse Oximetry 98 Oxygen Delivery Method 02/17/23 17:25 Temperature Pulse Rate 75 Respiratory Rate 15 Blood Pressure 149/75 H Pulse Oximetry 99 Oxygen Delivery Method Room Air <Gera Moeller DO - Last Filed: 02/17/23 17:51> Orders Ordered: Discontinued Medications Acetaminophen (Acetaminophen 325 Mg Tablet) 650 mg PO NOW ONE Stop: 02/17/23 18:02 Last Admin: 02/17/23 18:29 Dose: 650 mg Documented By: NR Hydrocodone Bitart/Acetaminophen (Hydrocodone/Acet 5/325 Tablet) 1 tab PO NOW ONE Stop: 02/16/23 19:29 Last Admin: 02/16/23 20:02 Dose: 1 tab Documented By: OSIRIS Lactated Ringer's (Lactated Ringers) 2,449.41 mls @ 816.47 mls/hr 30 ml/kg infuse over 3 hr (2449.41 ml) IV NOW ONE Stop: 02/16/23 23:34 Last Admin: 02/17/23 08:46 Dose: Not Given Documented By: AT Sodium Chloride (Normal Saline 0.9%) 2,449.41 mls @ 816.47 mls/hr 30 ml/kg infuse over 3 hr (2449.41 ml) IV NOW ONE Stop: 02/16/23 23:35 Last Infusion: 02/17/23 01:10 Dose: 0 mls/hr Documented By: Admin: 02/16/23 21:15 Dose: 816.47 mls/hr Documented By: ALEXYS Vital Signs Vital signs: Vital Signs - 8 hr 02/17/23 11:35 02/17/23 09:50 02/17/23 09:55 Temperature 98.0 F Pulse Rate 65 Respiratory Rate 16 Blood Pressure 151/79 H 148/84 H 141/70 H Pulse Oximetry 98 Oxygen Delivery Method Room Air 02/17/23 10:00 02/17/23 10:05 02/17/23 10:10 Temperature Pulse Rate Respiratory Rate Blood Pressure 160/77 H 150/71 H 151/75 H Pulse Oximetry Oxygen Delivery Method 02/17/23 10:15 02/17/23 10:20 02/17/23 10:25 Temperature Pulse Rate Respiratory Rate Blood Pressure 148/72 H 148/74 H 143/70 H Pulse Oximetry Oxygen Delivery Method 02/17/23 10:30 02/17/23 10:35 02/17/23 10:40 Temperature Pulse Rate Respiratory Rate Blood Pressure 140/71 145/73 H 133/76 Pulse Oximetry Oxygen Delivery Method 02/17/23 10:45 02/17/23 10:50 02/17/23 10:55 Temperature Pulse Rate Respiratory Rate Blood Pressure 145/77 H 155/85 H 159/71 H Pulse Oximetry Oxygen Delivery Method 02/17/23 11:00 02/17/23 11:05 02/17/23 11:10 Temperature Pulse Rate Respiratory Rate Blood Pressure 155/70 H 155/73 H 153/72 H Pulse Oximetry Oxygen Delivery Method 02/17/23 11:15 02/17/23 11:18 02/17/23 11:18 Temperature Pulse Rate 66 Respiratory Rate Blood Pressure 149/72 H 151/79 H Pulse Oximetry 98 Oxygen Delivery Method 02/17/23 17:25 Temperature Pulse Rate 75 Respiratory Rate 15 Blood Pressure 149/75 H Pulse Oximetry 99 Oxygen Delivery Method Room Air MDM - Extremity Injury (Upper) <Miri Chávez, [employer] APPRAISER - Last Filed: 02/16/23 20:12> Lab Data 02/16/23 19:58 02/16/23 19:58 Labs: Lab Results 02/16/23 02/16/23 02/16/23 Range/Units 19:40 19:58 19:58 WBC 8.3 (4.5-11.0) X10^3/uL RBC 3.90 L (4.5-5.9) X10^6/uL Hgb 11.9 L (13.5-17.5) g/dL Hct 35.2 L (41-53) % MCV 90.4 (80-100) fL MCH 30.5 (26-34) PG MCHC 33.8 (30-36) % RDW 13.9 (11.6-14.8) % Plt Count 361 (150-400) X10^3/uL Neut % (Auto) 55.1 (50-75) % Lymph % (Auto) 33.8 (25-40) % [place] % (Auto) 6.9 (3-14) % Eos % (Auto) 3.7 (2-4) % Baso % (Auto) 0.5 (0-2) % Neut # (Auto) 4600 (2416-8582) /uL Lymph # (Auto) 2800 (7694-1313) /uL [place] # (Auto) 600 (0-900) /uL Eos # (Auto) 300 (0-450) /uL Baso # (Auto) 0 (0-100) /uL Sodium 137 (137-145) mmol/L Potassium 3.9 (3.4-5.1) mmol/L Chloride 99 (98-107) mmol/L Carbon Dioxide 20 L (22-32) mmol/L BUN 11 (9-20) mg/dL Creatinine 0.85 (0.66-1.25) mg/dL Estimated GFR > 60 (>60) mL/min BUN/Creatinine Ratio 12.9 (6-22) Glucose 142 H (80-110) mg/dL Lactate (0.7-2.1) mmol/L Calcium 9.0 (8.4-10.2) mg/dL Magnesium 1.7 (1.6-2.3) mg/dL Total Bilirubin 0.6 (0.2-1.3) mg/dL AST 18 (17-59) IU/L ALT 19 (<50) IU/L Alkaline Phosphatase 90 (38-126) U/L C-Reactive Protein 0.8 (<1.0) mg/dL Total Protein 7.8 (6.3-8.2) g/dL Albumin 4.3 (3.5-5.0) g/dL Globulin 3.5 (1.7-4.1) g/dL Albumin/Globulin Ratio 1.2 (1.0-2.8) Urine Color Yellow Urine Appearance Clear Urine pH 5.0 (4.5-8.0) Ur Specific [place] 1.010 (1.000-1.035) Urine Protein Negative (Negative) Urine Glucose (UA) Negative (Negative) g/dL Urine Ketones Negative (NEGATIVE) Urine Occult Blood Negative (Negative) Urine Nitrate Negative (Negative) Urine Bilirubin Negative (NEGATIVE) Urine Urobilinogen 0.2 (0.2) E.U./dL Ur Leukocyte Esterase Negative (NEGATIVE) Urine RBC 0-1/hpf (0-5/HPF) Urine WBC 0-1/hpf (0-5/HPF) Ur Squamous Epith Cells 0-1 /hpf (0-5/HPF) Urine Bacteria Occasional (0-1) (None) Ur Culture Indicated? Cult not indicated Ethyl Alcohol 106 H ( - 10) mg/dL 02/16/23 02/16/23 02/17/23 Range/Units 19:58 22:30 08:35 WBC (4.5-11.0) X10^3/uL RBC (4.5-5.9) X10^6/uL Hgb (13.5-17.5) g/dL Hct (41-53) % MCV (80-100) fL MCH (26-34) PG MCHC (30-36) % RDW (11.6-14.8) % Plt Count (150-400) X10^3/uL Neut % (Auto) (50-75) % Lymph % (Auto) (25-40) % [place] % (Auto) (3-14) % Eos % (Auto) (2-4) % Baso % (Auto) (0-2) % Neut # (Auto) (9925-2145) /uL Lymph # (Auto) (8587-7644) /uL [place] # (Auto) (0-900) /uL Eos # (Auto) (0-450) /uL Baso # (Auto) (0-100) /uL Sodium (137-145) mmol/L Potassium (3.4-5.1) mmol/L Chloride (98-107) mmol/L Carbon Dioxide (22-32) mmol/L BUN (9-20) mg/dL Creatinine (0.66-1.25) mg/dL Estimated GFR (>60) mL/min BUN/Creatinine Ratio (6-22) Glucose (80-110) mg/dL Lactate 3.8 H 3.4 H (0.7-2.1) mmol/L Calcium (8.4-10.2) mg/dL Magnesium (1.6-2.3) mg/dL Total Bilirubin (0.2-1.3) mg/dL AST (17-59) IU/L ALT (<50) IU/L Alkaline Phosphatase (38-126) U/L C-Reactive Protein (<1.0) mg/dL Total Protein (6.3-8.2) g/dL Albumin (3.5-5.0) g/dL Globulin (1.7-4.1) g/dL Albumin/Globulin Ratio (1.0-2.8) Urine Color Urine Appearance Urine pH (4.5-8.0) Ur Specific [place] (1.000-1.035) Urine Protein (Negative) Urine Glucose (UA) (Negative) g/dL Urine Ketones (NEGATIVE) Urine Occult Blood (Negative) Urine Nitrate (Negative) Urine Bilirubin (NEGATIVE) Urine Urobilinogen (0.2) E.U./dL Ur Leukocyte Esterase (NEGATIVE) Urine RBC (0-5/HPF) Urine WBC (0-5/HPF) Ur Squamous Epith Cells (0-5/HPF) Urine Bacteria (None) Ur Culture Indicated? Ethyl Alcohol < 10 ( - 10) mg/dL MDM Narrative Medical decision making narrative: Chief Complaint: Incontinence, low back pain Independent historian: Patient Differential diagnoses include but are not limited to: Alcohol abuse, electrolyte abnormalities, urinary tract infection, intoxication, alcohol withdrawal, lumbar radiculopathy, pyelonephritis, nephrolithiasis, muscle strains sprain, osteoarthritis I have independently reviewed the patient's vital signs and nursing notes as well as prior records if available. Pertinent lab findings reviewed: Patient's urine dip is negative for leukocytes or RBCs Course of care: Patient is pleasant, interactive, smells strongly of urine and on exam, his penis is erythematous, appears like contact dermatitis secondary to sitting in wet urine for long period of time. Nursing helped with bathing patient Social considerations that may affect disposition: none Questions are addressed and there is agreement with the plan and for follow-up. Patient is appropriate for outpatient management. MIPS: This encounter doesn't have any diagnosis' associated with MIPS criteria. <Eleazar Hilton, DO - Last Filed: 02/18/23 04:57> Lab Data Labs: Lab Results 02/16/23 02/16/23 02/16/23 Range/Units 19:40 19:58 19:58 WBC 8.3 (4.5-11.0) X10^3/uL RBC 3.90 L (4.5-5.9) X10^6/uL Hgb 11.9 L (13.5-17.5) g/dL Hct 35.2 L (41-53) % MCV 90.4 (80-100) fL MCH 30.5 (26-34) PG MCHC 33.8 (30-36) % RDW 13.9 (11.6-14.8) % Plt Count 361 (150-400) X10^3/uL Neut % (Auto) 55.1 (50-75) % Lymph % (Auto) 33.8 (25-40) % [place] % (Auto) 6.9 (3-14) % Eos % (Auto) 3.7 (2-4) % Baso % (Auto) 0.5 (0-2) % Neut # (Auto) 4600 (3697-0683) /uL Lymph # (Auto) 2800 (5328-2729) /uL [place] # (Auto) 600 (0-900) /uL Eos # (Auto) 300 (0-450) /uL Baso # (Auto) 0 (0-100) /uL Sodium 137 (137-145) mmol/L Potassium 3.9 (3.4-5.1) mmol/L Chloride 99 (98-107) mmol/L Carbon Dioxide 20 L (22-32) mmol/L BUN 11 (9-20) mg/dL Creatinine 0.85 (0.66-1.25) mg/dL Estimated GFR > 60 (>60) mL/min BUN/Creatinine Ratio 12.9 (6-22) Glucose 142 H (80-110) mg/dL Lactate (0.7-2.1) mmol/L Calcium 9.0 (8.4-10.2) mg/dL Magnesium 1.7 (1.6-2.3) mg/dL Total Bilirubin 0.6 (0.2-1.3) mg/dL AST 18 (17-59) IU/L ALT 19 (<50) IU/L Alkaline Phosphatase 90 (38-126) U/L C-Reactive Protein 0.8 (<1.0) mg/dL Total Protein 7.8 (6.3-8.2) g/dL Albumin 4.3 (3.5-5.0) g/dL Globulin 3.5 (1.7-4.1) g/dL Albumin/Globulin Ratio 1.2 (1.0-2.8) Urine Color Yellow Urine Appearance Clear Urine pH 5.0 (4.5-8.0) Ur Specific [place] 1.010 (1.000-1.035) Urine Protein Negative (Negative) Urine Glucose (UA) Negative (Negative) g/dL Urine Ketones Negative (NEGATIVE) Urine Occult Blood Negative (Negative) Urine Nitrate Negative (Negative) Urine Bilirubin Negative (NEGATIVE) Urine Urobilinogen 0.2 (0.2) E.U./dL Ur Leukocyte Esterase Negative (NEGATIVE) Urine RBC 0-1/hpf (0-5/HPF) Urine WBC 0-1/hpf (0-5/HPF) Ur Squamous Epith Cells 0-1 /hpf (0-5/HPF) Urine Bacteria Occasional (0-1) (None) Ur Culture Indicated? Cult not indicated Ethyl Alcohol 106 H ( - 10) mg/dL 02/16/23 02/16/23 02/17/23 Range/Units 19:58 22:30 08:35 WBC (4.5-11.0) X10^3/uL RBC (4.5-5.9) X10^6/uL Hgb (13.5-17.5) g/dL Hct (41-53) % MCV (80-100) fL MCH (26-34) PG MCHC (30-36) % RDW (11.6-14.8) % Plt Count (150-400) X10^3/uL Neut % (Auto) (50-75) % Lymph % (Auto) (25-40) % [place] % (Auto) (3-14) % Eos % (Auto) (2-4) % Baso % (Auto) (0-2) % Neut # (Auto) (5732-4814) /uL Lymph # (Auto) (2971-2165) /uL [place] # (Auto) (0-900) /uL Eos # (Auto) (0-450) /uL Baso # (Auto) (0-100) /uL Sodium (137-145) mmol/L Potassium (3.4-5.1) mmol/L Chloride (98-107) mmol/L Carbon Dioxide (22-32) mmol/L BUN (9-20) mg/dL Creatinine (0.66-1.25) mg/dL Estimated GFR (>60) mL/min BUN/Creatinine Ratio (6-22) Glucose (80-110) mg/dL Lactate 3.8 H 3.4 H (0.7-2.1) mmol/L Calcium (8.4-10.2) mg/dL Magnesium (1.6-2.3) mg/dL Total Bilirubin (0.2-1.3) mg/dL AST (17-59) IU/L ALT (<50) IU/L Alkaline Phosphatase (38-126) U/L C-Reactive Protein (<1.0) mg/dL Total Protein (6.3-8.2) g/dL Albumin (3.5-5.0) g/dL Globulin (1.7-4.1) g/dL Albumin/Globulin Ratio (1.0-2.8) Urine Color Urine Appearance Urine pH (4.5-8.0) Ur Specific [place] (1.000-1.035) Urine Protein (Negative) Urine Glucose (UA) (Negative) g/dL Urine Ketones (NEGATIVE) Urine Occult Blood (Negative) Urine Nitrate (Negative) Urine Bilirubin (NEGATIVE) Urine Urobilinogen (0.2) E.U./dL Ur Leukocyte Esterase (NEGATIVE) Urine RBC (0-5/HPF) Urine WBC (0-5/HPF) Ur Squamous Epith Cells (0-5/HPF) Urine Bacteria (None) Ur Culture Indicated? Ethyl Alcohol < 10 ( - 10) mg/dL MDM Narrative Medical decision making narrative: Chief Complaint: Incontinence, low back pain Independent historian: Patient Differential diagnoses include but are not limited to: Alcohol abuse, electrolyte abnormalities, urinary tract infection, intoxication, alcohol withdrawal, lumbar radiculopathy, pyelonephritis, nephrolithiasis, muscle strains sprain, osteoarthritis I have independently reviewed the patient's vital signs and nursing notes as well as prior records if available. Pertinent lab findings reviewed: Patient's urine dip is negative for leukocytes or RBCs Course of care: Patient is pleasant, interactive, smells strongly of urine and on exam, his penis is erythematous, appears like contact dermatitis secondary to sitting in wet urine for long period of time. Nursing helped with bathing patient [2000] (Yobani) Patient received in sign out from [employer]. I have reviewed the clinical course and performed an independent history and physical exam. His pain is currently rather well controlled and he has little complaint at this point in time. The patient's social situation is concerning as he is currently living in a hotel with no access to help. He is a bit disheveled and unkempt and smells of urine. He has been interval to bathe himself and is unclear about his ability to access food. There is report that he is not welcome back to the hotel that he came from. He otherwise has no placed ago and states all friends and family live in [place]. Patient will need social work and Physical therapy consultations to gain more perspective about options moving forward <Gera Moeller DO - Last Filed: 02/17/23 17:51> Lab Data Labs: Lab Results 02/16/23 02/16/23 02/16/23 Range/Units 19:40 19:58 19:58 WBC 8.3 (4.5-11.0) X10^3/uL RBC 3.90 L (4.5-5.9) X10^6/uL Hgb 11.9 L (13.5-17.5) g/dL Hct 35.2 L (41-53) % MCV 90.4 (80-100) fL MCH 30.5 (26-34) PG MCHC 33.8 (30-36) % RDW 13.9 (11.6-14.8) % Plt Count 361 (150-400) X10^3/uL Neut % (Auto) 55.1 (50-75) % Lymph % (Auto) 33.8 (25-40) % [place] % (Auto) 6.9 (3-14) % Eos % (Auto) 3.7 (2-4) % Baso % (Auto) 0.5 (0-2) % Neut # (Auto) 4600 (2302-0345) /uL Lymph # (Auto) 2800 (0088-8006) /uL [place] # (Auto) 600 (0-900) /uL Eos # (Auto) 300 (0-450) /uL Baso # (Auto) 0 (0-100) /uL Sodium 137 (137-145) mmol/L Potassium 3.9 (3.4-5.1) mmol/L Chloride 99 (98-107) mmol/L Carbon Dioxide 20 L (22-32) mmol/L BUN 11 (9-20) mg/dL Creatinine 0.85 (0.66-1.25) mg/dL Estimated GFR > 60 (>60) mL/min BUN/Creatinine Ratio 12.9 (6-22) Glucose 142 H (80-110) mg/dL Lactate (0.7-2.1) mmol/L Calcium 9.0 (8.4-10.2) mg/dL Magnesium 1.7 (1.6-2.3) mg/dL Total Bilirubin 0.6 (0.2-1.3) mg/dL AST 18 (17-59) IU/L ALT 19 (<50) IU/L Alkaline Phosphatase 90 (38-126) U/L C-Reactive Protein 0.8 (<1.0) mg/dL Total Protein 7.8 (6.3-8.2) g/dL Albumin 4.3 (3.5-5.0) g/dL Globulin 3.5 (1.7-4.1) g/dL Albumin/Globulin Ratio 1.2 (1.0-2.8) Urine Color Yellow Urine Appearance Clear Urine pH 5.0 (4.5-8.0) Ur Specific [place] 1.010 (1.000-1.035) Urine Protein Negative (Negative) Urine Glucose (UA) Negative (Negative) g/dL Urine Ketones Negative (NEGATIVE) Urine Occult Blood Negative (Negative) Urine Nitrate Negative (Negative) Urine Bilirubin Negative (NEGATIVE) Urine Urobilinogen 0.2 (0.2) E.U./dL Ur Leukocyte Esterase Negative (NEGATIVE) Urine RBC 0-1/hpf (0-5/HPF) Urine WBC 0-1/hpf (0-5/HPF) Ur Squamous Epith Cells 0-1 /hpf (0-5/HPF) Urine Bacteria Occasional (0-1) (None) Ur Culture Indicated? Cult not indicated Ethyl Alcohol 106 H ( - 10) mg/dL 02/16/23 02/16/23 02/17/23 Range/Units 19:58 22:30 08:35 WBC (4.5-11.0) X10^3/uL RBC (4.5-5.9) X10^6/uL Hgb (13.5-17.5) g/dL Hct (41-53) % MCV (80-100) fL MCH (26-34) PG MCHC (30-36) % RDW (11.6-14.8) % Plt Count (150-400) X10^3/uL Neut % (Auto) (50-75) % Lymph % (Auto) (25-40) % [place] % (Auto) (3-14) % Eos % (Auto) (2-4) % Baso % (Auto) (0-2) % Neut # (Auto) (1317-8552) /uL Lymph # (Auto) (7300-6284) /uL [place] # (Auto) (0-900) /uL Eos # (Auto) (0-450) /uL Baso # (Auto) (0-100) /uL Sodium (137-145) mmol/L Potassium (3.4-5.1) mmol/L Chloride (98-107) mmol/L Carbon Dioxide (22-32) mmol/L BUN (9-20) mg/dL Creatinine (0.66-1.25) mg/dL Estimated GFR (>60) mL/min BUN/Creatinine Ratio (6-22) Glucose (80-110) mg/dL Lactate 3.8 H 3.4 H (0.7-2.1) mmol/L Calcium (8.4-10.2) mg/dL Magnesium (1.6-2.3) mg/dL Total Bilirubin (0.2-1.3) mg/dL AST (17-59) IU/L ALT (<50) IU/L Alkaline Phosphatase (38-126) U/L C-Reactive Protein (<1.0) mg/dL Total Protein (6.3-8.2) g/dL Albumin (3.5-5.0) g/dL Globulin (1.7-4.1) g/dL Albumin/Globulin Ratio (1.0-2.8) Urine Color Urine Appearance Urine pH (4.5-8.0) Ur Specific [place] (1.000-1.035) Urine Protein (Negative) Urine Glucose (UA) (Negative) g/dL Urine Ketones (NEGATIVE) Urine Occult Blood (Negative) Urine Nitrate (Negative) Urine Bilirubin (NEGATIVE) Urine Urobilinogen (0.2) E.U./dL Ur Leukocyte Esterase (NEGATIVE) Urine RBC (0-5/HPF) Urine WBC (0-5/HPF) Ur Squamous Epith Cells (0-5/HPF) Urine Bacteria (None) Ur Culture Indicated? Ethyl Alcohol < 10 ( - 10) mg/dL MDM Narrative Medical decision making narrative: Chief Complaint: Incontinence, low back pain Independent historian: Patient Differential diagnoses include but are not limited to: Alcohol abuse, electrolyte abnormalities, urinary tract infection, intoxication, alcohol withdrawal, lumbar radiculopathy, pyelonephritis, nephrolithiasis, muscle strains sprain, osteoarthritis I have independently reviewed the patient's vital signs and nursing notes as well as prior records if available. Pertinent lab findings reviewed: Patient's urine dip is negative for leukocytes or RBCs Course of care: Patient is pleasant, interactive, smells strongly of urine and on exam, his penis is erythematous, appears like contact dermatitis secondary to sitting in wet urine for long period of time. Nursing helped with bathing patient [1999] (Yobani) Patient received in sign out from [employer]. I have reviewed the clinical course and performed an independent history and physical exam. His pain is currently rather well controlled and he has little complaint at this point in time. The patient's social situation is concerning as he is currently living in a hotel with no access to help. He is a bit disheveled and unkempt and smells of urine. He has been interval to bathe himself and is unclear about his ability to access food. There is report that he is not welcome back to the hotel that he came from. He otherwise has no placed ago and states all friends and family live in [place]. Patient will need social work and Physical therapy consultations to gain more perspective about options moving forward Dr moeller: Received turned over. Review patient's history and physical exam and workup at this point. Patient is medically cleared. Has been seen by Physical therapy as ambulate around the emergency department with his walker. Is alert oriented. Has tolerated oral intake. Has been seen by social work. It appears that he recently spent extended period of time in a long term facility because of his recent orthopedic issues. He told social work that he is just been ?lazy? and not getting up in order to go to the bathroom and has been using the briefs. Patient does not have an amenable diagnosis. We have attempted multiple times to try to help the patient out by [facility] about finding a place for him to stay. The patient apparently has money in order to pay for hotel. Patient would like to be discharged. Discharge Plan Departure Patient Disposition: Home Clinical Impression: Back pain Instructions: How to Prevent Falls Activity Restrictions/Additional Instructions: Recommend that you continue to take all of your medications as directed. Contact your primary doctor for a follow-up. Return to the emergency department for new symptoms. Prescriptions: No Action pantoprazole 40 mg tablet,delayed release (DR/EC) 40 mg PO DAILY Qty: 30 0RF Stand Alone Forms: Patient Portal/API <Eleazar Hilton, DO - Last Filed: 02/18/23 04:57> [facility] ED Attending Cosignature Attestation: I was immediately available in the department for consultation. This documentation has been reviewed and I agree with assessment and plan. Supervised by Eleazar Hilton, DO
[2023-02-16] MEDS: HYDROCODONE/ACET 5/325 TABLET 1 TAB PO (20:02)
[2023-02-16 20:04] LABS: Appearance Urine UA CLEAR; Bilirubin Urine UA NEGATIVE (NEGATIVE); Color Urine UA YELLOW; Glucose Urine UA NEGATIVE (Negative); Ketones Urine UA NEGATIVE (NEGATIVE); Leukocyte Esterase Urine UA NEGATIVE (NEGATIVE); Nitrite Urine UA NEGATIVE (Negative); Occult Blood Urine UA NEGATIVE (Negative); Protein Urine UA NEGATIVE (Negative); Urobilinogen Urine UA 0.2 E.U./dL (0.2)
[2023-02-16 20:05] LABS: Add Manual Diff / Slide Review NO; Basophils Absolute Auto 0 /uL (0-100); Basophils Percent Auto 0.5 % (0-2); Eosinophils Absolute Auto 300 /uL (0-450); Eosinophils Percent Auto 3.7 % (2-4); Hematocrit 35.2 % (41-53); Hemoglobin 11.9 g/dL (13.5-17.5); Lymphocytes Absolute Auto 2800 /uL (1100-4500); Lymphocytes Percent Auto 33.8 % (25-40); Mean Corpuscular HGB Conc 33.8 % (30-36); Mean Corpuscular Hemoglobin 30.5 PG (26-34); Mean Corpuscular Volume 90.4 fL (80-100); Monocytes Absolute Auto 600 /uL (0-900); Monocytes Percent Auto 6.9 % (3-14); Neutrophils Absolute Auto 4600 /uL (1500-7000); Neutrophils Percent Auto 55.1 % (50-75); Platelet Count 361 X10^3/uL (150-400); Red Cell Distribution Width 13.9 % (11.6-14.8); White Blood Cell Count 8.3 X10^3/uL (4.5-11.0)
--- NOTE | 2023-02-16 20:12 | DI.RAD.S_ITS ---
PROCEDURE: XR LUMBAR SPINE 2-3V INDICATIONS: low back pain no trauma TECHNIQUE: 3 views of the lumbar spine were acquired. COMPARISON: None. FINDINGS: Bones: 5 [id number] vertebrae are present. There is a minimal rightward curvature of the lumbar spine. Disc spaces appear grossly preserved. There is mild multilevel osteophytosis suggestive of early degenerative disc disease. There is mild facet arthropathy in the lower lumbar spine. No vertebral body compression fractures. No suspicious bony lesions. Soft tissues: Overlying bowel gas pattern is normal. No suspicious soft tissue calcifications. IMPRESSION: 1. Mild facet arthropathy in the lower lumbar spine. 2. Mild multilevel endplate osteophytosis suggestive of early degenerative disc disease. Dictated by: Constantin Arreola M.D. on 02/16/2023 at 21:33 Approved by: Constantin Arreola M.D. on 02/16/2023 at 21:35
[2023-02-16 20:18] LABS: Lactate (Lactic Acid) 3.8 mmol/L (0.7-2.1)
[2023-02-16 20:19] LABS: Alanine Aminotransferase 19 IU/L (<50); Albumin 4.3 g/dL (3.5-5.0); Albumin Globulin Ratio 1.2 (1.0-2.8); Alkaline Phosphatase 90 U/L (38-126); Aspartate Aminotransferase 18 IU/L (17-59); BUN Creatinine Ratio 12.9 (6-22); Bilirubin Total 0.6 mg/dL (0.2-1.3); Blood Urea Nitrogen 11 mg/dL (9-20); C-Reactive Protein Quant 0.8 mg/dL (<1.0); Carbon Dioxide 20 mmol/L (22-32); Chloride 99 mmol/L (98-107); Estimated Glomerular Filt Rate > 60 mL/min (>60); Ethanol (ETOH) 106 mg/dL; Globulin 3.5 g/dL (1.7-4.1); Glucose 142 mg/dL (80-110); HEMOLYSIS < 15 (0-50); Magnesium 1.7 mg/dL (1.6-2.3); Potassium 3.9 mmol/L (3.4-5.1); Sodium 137 mmol/L (137-145); Total Protein 7.8 g/dL (6.3-8.2)
[2023-02-16 20:26] LABS: Bacteria Urine Occasional (0-1); Culture Indicated Urine Cult Not Indicated; RBC Urine 0-1/HPF (0-5/HPF); Squamous Epithelial Cell Urine 0-1 /HPF (0-5/HPF); WBC Urine 0-1/HPF (0-5/HPF)
[2023-02-16] MEDS: SODIUM CHLORIDE 0.9% 2,449.41 ML 816.47 ML IV (21:15)
[2023-02-16 22:02] LABS: Reflexed Lactate in 2 Hours Y
[2023-02-16 22:52] LABS: Lactate 2HR (Lactic Acid Rflx) 3.4 mmol/L (0.7-2.1)
[2023-02-17] VITALS (71 sets, daily range): BP systolic 133–201; BP diastolic 58–105; PULSE 60–94; RESP 15–16; TEMP 36.7; O2SAT 96–99
[2023-02-17 08:54] LABS: Ethanol (ETOH) < 10 mg/dL
--- NOTE | 2023-02-17 14:42 | PT.IIE ---
Surgical History (Last Reviewed 02/16/23 @ 19:[address]uggan) History of repair of hiatal hernia Medical History (Last Reviewed 02/16/23 @ 19:[address] Duggan) Alcohol dependence Diabetes type 2, no ocular involvement Hypertension Physical Therapy Inpatient Evaluation/Re-Eval M1 PT/OT-IP Prior Functional Status Start: 02/17/23 14:47 Freq: Status: Active Protocol: Document 02/17/23 14:42 DLM (Rec: 02/17/23 15:21 DL [id number]) Medical Review Prior Functional Status Medical History Reviewed Yes Diet/Fluid Consistency Regular Communication WFL Mobility and Gait Independent with quad cane. He reports he has not been walking much in the community due to his incontinence issues and no car. Activities of Daily Living and IADL's Independent. He gets foot delivered to his hotel room from local restaurants Prior Functional Level (Other details) He was recently discharged from [facility] . Social History Household Members none Number of Floors (Floors) One Floor Number of Stairs To Enter/Railing? none reported Home Equipment Quad Cane Employment Status Retired Additional Social History Comment he has difficulty giving me details about his progression after his left LE surgery He has been living in a hotel, [facility], [facility] He is retired from the [employer] M2 PT-IP Current Condition Start: 02/17/23 14:47 Freq: Status: Active Protocol: Document 02/17/23 14:42 DLM (Rec: 02/17/23 15:21 DL [id number]) Physical Therapy Current Condition Current Condition Evaluation Date 02/17/23 Treatment Diagnosis back and left LE pain Onset Date 02/16/23 M3 PT-IP Subjective Start: 02/17/23 14:47 Freq: Status: Active Protocol: Document 02/17/23 14:42 DLM (Rec: 02/17/23 15:21 DL [id number]) Subjective Physical Therapy Visit Type Type Initial Evaluation Visit Start Time 14:00 Visit Stop Time 14:42 Total Visit Minutes 42 Number of SUPERINTENDENT LAUNDRY Visits 0 Physical Therapy Visit Comments Patient Comments He is worried about his incontinence. He reports incontinence of stool and urine. He reports his back pain comes and goes. His left thigh area pain is worse with moving and walking. Patient Goals he is not able to state at this time Therapy Pain Assessment Pain When Pain Assessed During Mobility Pain Present Pain Present Pain Reported Location back Intensity 3 Scale Used Numeric (0 - 10) Description Aching,Sharp,With Movement Pain Behaviors Calling Out,Wincing Pain Management Techniques Re-positioning M4 PT-IP Mobility and Gait Start: 02/17/23 14:47 Freq: Status: Active Protocol: Document 02/17/23 14:42 DLM (Rec: 02/17/23 15:21 DL [id number]) PT-Bed Mobility Assessment Supine to Sit Supine to Sit Independent Sit to Supine Sit to Supine Independent Scooting Scooting to Edge of Bed Independent PT-Transfer Assessment Sit to and From Stand Sit to and from Stand Independent,Use of Upper Extremities Equipment Transfer Assistive Device Gait Belt,Small Based Quad Cane Transfers Transfer Destination Bed Transfer Technique Stand Step Pivot Transfer Ability Level of Assist Independent,Use of Upper Extremities Comments Mobility Comments He complaints of intermittent sharp pain in his back with supine to sit and sit to stand . No back pain reported during gait. He reports left proximal LE pain during gait with weight bearing. Gait Assessment Gait Gait Assistance Required: Independent Distance (Feet) 150 Assistive Devices Assistive Device Gait Belt,Small Based Quad Cane Gait Deviations General Gait Pattern Antalgic Factors Limiting Gait Function Factors Limiting Gait Function Decreased Activity Tolerance, Pain Comments Gait Comments Pt needs the quad cane to manage his left LE pain and balance. He had 2 small losses of balance during gait that he was able to independently recover with use of the cane. PT-Balance Assessment Sitting Balance and Reactions Static Sitting Balance Ability Normal Dynamic Sitting Balance Ability Normal Standing Balance and Reactions Static Standing Balance Ability Good Dynamic Standing Balance Ability Good Device Used quad cane M5 PT-IP Objective Assessments Start: 02/17/23 14:47 Freq: Status: Active Protocol: Document 02/17/23 14:42 DLM (Rec: 02/17/23 15:21 DL [id number]) Orientation Orientation/Cognition Level of Alertness Alert Orientation Name,Birthday,Place Language Function Ability No Deficits Noted Safety Awareness Understands Safety Issues Memory Description Short Term Impaired Comments Did not fully assess his orientation for date. He is tangential in conversation and can be difficult to keep him on task. He is able to give some information about his past situation at [facility] but is limited in the details. He appears to be cognitively impaired. He is able to report problem solving for getting food at the hotel. He is aware he needs to use depends to manage his incontinence issues . Gross Range of Motion Upper Extremity ROM Assessment Within Functional Limits Lower Extremity ROM Assessment Within Functional Limits Impairments pain moving left hip Strength Upper Extremity Strength Assessment Within Functional Limits Lower Extremity Strength Assessment Within Functional Limits Hip flexion right 5/5, left 4+/5 Knee ext right 5/5, left 4+/5 Ankle DF 5/5 Coordination Assessment Gross Coordination Gross Coordination WNL Sensation Assessment Comments Sensation Comments he reports numbness in his toes that is not new, he reports he can feel touch Muscle Tone Muscle Tone WNL Yes M6 PT-IP Treatment Start: 02/17/23 14:47 Freq: Status: Active Protocol: Document 02/17/23 14:42 DLM (Rec: 02/17/23 15:21 DLM [id number]) Physical Therapy Treatment Education Education Provided Safety M7 PT-IP Assessment and Plan Start: 02/17/23 14:47 Freq: Status: Active Protocol: Document 02/17/23 14:42 DLM (Rec: 02/17/23 15:21 DLM [id number]) PT Summary Assessment and Plan Potential Rehabilitation Potential Good Status of Condition at Evaluation Stable Summary Impairments Pain,Strength,Balance,Activity Tolerance Progress Towards Goals Safe For Discharge Assessment Summary Patric is alert and resting on the stretcher in ED. He demonstrates independent mobility and gait. He complains of intermittent back pain with getting out of bed and sit to stand. He has left LE pain with gait. He had a recent left femur fx s/p ORIF but pt can not give me the date. He demonstrates independent gait with quad cane in the romeo. No skilled physical therapy needs identified while he is at the hospital. He may benefit from home health services at discharge to help manage his pain and continue his left LE recovery. Pt's biggest concern at this time was his bowel and bladder incontinence. Concerned that pt has no support system at discharge.Discussed his case with the caser up. Frequency of Treatment Frequency Of Treatment Discharge Treatment Plan Other Recommendations and Next Treatment he has his quad cane from home Focus with him in ED Precautions Other Precautions hx of falls and ETOH Weight Bearing Status Weight Bearing Status Weight Bear as Tolerated Allowed Weight Bearing Amount (enter % left LE per pt or #) (%) Recommendations To Nursing Amount of Assist Needed Standby Assistance Discharge Recommendations PT Discharge Recommendations Home,Home Health Other Discharge Recommendations would benefit from increased support at home Transportation Needs at Discharge Private Vehicle
--- NOTE | 2023-02-17 16:14 | PC.NURSE ---
Pt moved from room 6 to 3A. Pt given his phone while sitting in 3A. It was charging at the nurses' station. Pt still looking for his hat.
[2023-02-17] MEDS: ACETAMINOPHEN 325 MG TABLET 650 MG PO (18:29)
--- NOTE | 2023-02-17 18:47 | CM.SWNOTE ---
ED DCP Note Patient is 72 y/o male who presents to ED via EMS due to concern for back pain. Patient has been staying at the [facility] since recent d/c from [facility] SNF rehab. Per Alice, patient was at [facility] from 12/06/22-12/19/22 and was at [facility] from 12/19/22 - 02/09/23. [facility], patient has [employer] and Medicare insurance. Patient presents as A/O to self, person and place. Patient endorses he lost his apartment in [place] due to Hospital and SNF stay. Patient is a and has been staying at the [facility]. Patient endorses that his family resides in [place] and they will not visit to assist him. Patient endorses he had a room at [facility] living as well, FORENSIC MATERIALS ENGINEER did not confirm this. Patient endorses plans to stay [facility] until he finds new permanent housing. Patient endorses he walks with a cane at baseline and he is wearing adult briefs and endorses he has not tried to get up to get to the bathroom and states Manjula been lazy. ED provider orders PT for PT eval and patient passes and ambulates with cane. PT states patient would benefit from HH. Due to patient's living situation it may not be appropriate to secure HH until patient has stable housing. FOR[employer]IC MATERIALS ENGINEER encourages patient to f/u with PCP, FORENSIC MATERIALS ENGINEER provides patient with senior resource guide and brochure for [facility]. FORENSIC MATERIALS ENGINEER submits a referral for patient for [facility]. Senior Resources. FORENSIC MATERIALS ENGINEER calls [facility] and it is reported that patient cannot return to [facility] and does not have current reservation. FORENSIC MATERIALS ENGINEER informs patient and provides patient with lists of hotels in [place] and [place] per patient request. Patient reports he made reservations to stay at the [facility] [place] and requested a cab for transportation. Plan: patient discharges upon medical clearance with taxi private pay to [facility] in [place]. MARTINE Reyes
== END 2023-02-17 18:44 | disposition home or self-care (01) ==
PROVIDERS: Nurse Practitioner Critical Care Medicine; Emergency Provider Emergency Medicine
DX: M54.50 Low back pain, unspecified (principal); R32 Unspecified urinary incontinence; I10 Essential (primary) hypertension
CPT/HCPCS: 36415; 72100; 80053; 80320; 81001; 83605; 83735; 85025; 86140; 96360; 96361; 97162; 99284